=== PATIENT | male | born 1935 | race Caucasian/White ===

== ENCOUNTER → 2018-09-24 | Outpatient (CLI) | payer MEDICARE ==
[2018-09-24 19:33] LABS: Protein, Total 6.4 g/dL (6.2-8.2)
[2018-09-24 21:18] LABS: Hemoglobin A1C 5.7 % (4.0-6.0)
[2018-09-25 13:15] LABS: Albumin 3.89 g/dL (3.80-4.90); Gamma Globulin 0.88 g/dL (0.70-1.50)
== END | disposition home or self-care (01) ==
LOC: LABWHC1 12:27
PROVIDERS: ATTEND Psychiatry & Neurology Neurology
DX: G90.09 Other idiopathic peripheral autonomic neuropathy (principal); R26.89 Other abnormalities of gait and mobility; R42 Dizziness and giddiness
CPT/HCPCS: 36415; 82607; 82747; 83036; 84165; 85652; 86038; 86618

== ENCOUNTER 2021-05-26 09:25 | Day surgery (SDC) | payer MEDICARE ==
[2021-05-23 15:16] VITALS: BMI 28.2
[~2021-05-26 09:25] MED LIST: LACTATED RINGERS 1,000 ML IV SCH
[2021-05-26 09:55] VITALS: TEMP 97.4
[2021-05-26] MEDS ORDERED: LIDOCAINE 1% INJ 10MG/ML (20 ML MDV) ONE (10:37)
[2021-05-26] MEDS ORDERED: PROPOFOL 10 MG/ML 20 ML VIAL IV ONE (10:37)
--- NOTE | 2021-05-26 10:56 | P.GSHP ---
History of Present Illness H&P Date: 05/26/21 CHIEF COMPLAINT: GERD and colon screen HISTORY OF PRESENT ILLNESS: The patient is a 85-year-old male who presents with GI bleed and colon polyps. Upper and lower endoscopy were offered for further evaluation and management. PAST MEDICAL HISTORY: Please see list. PAST SURGICAL HISTORY: Please see list. MEDICATIONS: Please see list. ALLERGIES: Please see list. SOCIAL HISTORY: No illicit drug use FAMILY HISTORY: No reports of Crohn disease or ulcerative colitis. REVIEW OF ORGAN SYSTEMS: CONSTITUTIONAL: No reports of fevers or chills. PHYSICAL EXAM: VITAL SIGNS: Stable GENERAL: Well-developed pleasant in no acute distress. HEENT: No scleral icterus. Extraocular movements grossly intact. Moist buccal mucosa. NECK: Supple without lymphadenopathy. CHEST: Unlabored respirations. Equal bilateral excursions. CARDIOVASCULAR: Regular rate and rhythm. Distal 2+ pulses. ABDOMEN: Soft, nondistended. MUSCULOSKELETAL: No clubbing, cyanosis, or edema. ASSESSMENT: 1. GI bleed 2. Colon polyps PLAN: 1. Recommend proceeding with an upper and lower endoscopy Past Medical History Past Medical History: Atrial Fibrillation, Coronary Artery Disease (CAD), Hyperlipidemia, Hypertension, Myocardial Infarction ([place]), Prostate Disorder, S leep Apnea/CPAP/BIPAP, Thyroid Disorder Last Myocardial Infarction Date:: 1993 History of Any Multi-Drug Resistant Organisms: None Reported Past Surgical History: Coronary Bypass/CABG, Heart Catheterization With Stent, Joint Replacement, Pacemaker Additional Past Surgical History / Comment(s): retina repaired. mac. cataracts removed. right knee replaced Past Anesthesia/Blood Transfusion Reactions: No Reported Reaction Date of Last Stent Placement:: 2017 Type of Cardiac Device: Permanent Pacemaker Device Placement Date:: 2006 Past Psychological History: No Psychological Hx Reported Smoking Status: Never smoker Past Alcohol Use History: None Reported Past Drug Use History: None Reported Medications and Allergies Home Medications Medication Instructions Recorded Confirmed Type Apixaban [Eliquis] 5 mg PO BID-W/MEALS 05/23/21 05/23/21 History Chlorthalidone 25 mg PO DIRECTED 05/23/21 05/23/21 History Clopidogrel [Plavix] 75 mg PO AC-BRKFST 05/23/21 05/23/21 History Ferrous Sulfate [Feosol] 325 mg PO AC-LUNCH 05/23/21 05/23/21 History Finasteride [Proscar] 5 mg PO AC-LUNCH 05/23/21 05/23/21 History Latanoprost Ophth [Xalatan 0.005%] 1 drops BOTH EYES HS 05/23/21 05/23/21 History Levothyroxine Sodium [Synthroid] 75 mcg PO QAM 05/23/21 05/23/21 History Losartan [Cozaar] 50 mg PO AC-LUNCH 05/23/21 05/23/21 History Metoprolol Tartrate 25 mg PO BID-W/MEALS 05/23/21 05/23/21 History Montelukast [Singulair] 10 mg PO AC-BRKFST 05/23/21 05/23/21 History Multivitamins, Thera [Multivitamin 1 tab PO -KT 05/23/21 05/23/21 History (formulary)] Omeprazole Magnesium [PriLOSEC] 20 mg PO AC-BRKFST 05/23/21 05/23/21 History Simvastatin [Zocor] 40 mg PO HS 05/23/21 05/23/21 History Tamsulosin HCl [Flomax] 0.4 mg PO AC-SUPPER 05/23/21 05/23/21 History Ubidecarenone [Co Q-10] 100 mg PO BID-W/MEALS 05/23/21 05/23/21 History Allergies Allergy/AdvReac Type Severity Reaction Status Date / Time hydromorphone [From Dilaudid] AdvReac Nausea & Verified 05/26/21 09:47 Vomiting Surgical - Exam Vital Signs Temp Pulse Resp BP Pulse Ox 97.4 F L 83 16 173/92 96 05/26/21 09:51 05/26/21 09:51 05/26/21 09:51 05/26/21 09:51 05/26/21 09:51
--- NOTE | 2021-05-26 10:57 | P.PCN ---
Date of Procedure: 05/26/21 Description of Procedure: PREOPERATIVE DIAGNOSIS: GI bleed POSTOPERATIVE DIAGNOSIS: Gastritis. Gastroesophageal reflux disease. Diaphragmatic hiatal hernia OPERATION: Esophagogastroduodenoscopy SURGEON: Nanette Benoit MD ANESTHESIA: MAC. INDICATIONS: The patient is a 85-year-old male who presents with a history of GI bleed. Benefits and risks of the procedure were described. Informed consent was obtained. DESCRIPTION: The patient was brought into the endoscopy suite and laid in the left lateral decubitus position. An Olympus gastroscope was passed along the posterior oropharynx down to the distal esophagus where the squamocolumnar junction was encountered at 40 cm from the incisors. The stomach was entered and no bile reflux was found. Additional findings are listed below. The first through third portion of the duodenum was examined and unremarkable. Retroflexion of the scope confirmed Hill grade 3 lower esophageal valve. The squamocolumnar junction demonstrated LA grade B erosive esophagitis. The stomach was desufflated. The patient tolerated the procedure well. FINDINGS: Squamocolumnar junction 44 cm from the incisors. Diaphragmatic hiatus at 45 cm. Hiatal hernia, 1 cm Hill grade 3 lower esophageal valve. LA grade B erosive esophagitis. No active duodenitis. Chronic gastritis RECOMMENDATIONS: Upper endoscopy as needed.
[2021-05-26] MEDS ORDERED: LACTATED RINGERS 1,000 ML IV ONE (11:02)
--- NOTE | 2021-05-26 11:16 | P.PCN ---
Date of Procedure: 05/26/21 Description of Procedure: PREOPERATIVE DIAGNOSIS: History of colon polyps History of GI bleed POSTOPERATIVE DIAGNOSIS: History of colon polyps History of GI bleed Diverticulosis, scattered. OPERATION: Colonoscopy to the cecum SURGEON: Nanette Benoit MD. ANESTHESIA: MAC. INDICATIONS: The patient is a 85-year-old male who presents with past history of colon polyps and guaiac positive stools. Benefits and risks were described and informed consent was obtained. DESCRIPTION OF PROCEDURE: The patient had undergone Sutab prep. The patient had been brought into the operating room and laid in the left lateral decubitus position. After adequate intravenous sedation, the rectum was examined with 2% lidocaine jelly. No external hemorrhoids were encountered. The rectal tone was mildly loose. No lesions were palpated in the rectal vault. An Olympus colonoscope was advanced until the cecum was clearly viewed. The prep was excellent. Sigmoid diverticulosis was encountered. No colonic polyps were found. No evidence of focal colitis was found. Retroflexion of the scope demonstrated grade 1 internal hemorrhoids without active bleeding or inflammation. The colon was desufflated. The patient had tolerated the procedure well. Withdrawal time was over 6 minutes. FINDINGS: Aronchick preparation quality scale 1 (1-5) Internal hemorrhoids, grade 1 No external prolapsed hemorrhoids. No arteriovenous malformations. No adenomatous polyps. No focal colitis. Sigmoid diverticulosis RECOMMENDATIONS: Lower endoscopy as needed Increase fiber 30 grams daily Plan - Discharge Summary Discharge Rx Participant: No New Discharge Prescriptions: Continue Finasteride [Proscar] 5 mg PO AC-LUNCH Latanoprost Ophth [Xalatan 0.005%] 1 drops BOTH EYES HS Ferrous Sulfate [Iron (65 MG Elemental)] 325 mg PO AC-LUNCH Metoprolol Tartrate 25 mg PO BID-W/MEALS Apixaban [Eliquis] 5 mg PO BID-W/MEALS Losartan [Cozaar] 50 mg PO AC-LUNCH Montelukast [Singulair] 10 mg PO AC-BRKFST Chlorthalidone 25 mg PO DIRECTED Tamsulosin HCl [Flomax] 0.4 mg PO AC-SUPPER Ubidecarenone [Co Q-10] 100 mg PO BID-W/MEALS Clopidogrel [Plavix] 75 mg PO AC-BRKFST Levothyroxine Sodium [Synthroid] 75 mcg PO QAM Omeprazole Magnesium [PriLOSEC] 20 mg PO AC-BRKFST Simvastatin [Zocor] 40 mg PO HS Multivitamins, Thera [Multivitamin (formulary)] 1 tab PO AC-BRKFST Discharge Medication List Apixaban [Eliquis] 5 mg PO BID-W/MEALS 05/23/21 [History] Chlorthalidone 25 mg PO DIRECTED 05/23/21 [History] Clopidogrel [Plavix] 75 mg PO AC-BRKFST 05/23/21 [History] Ferrous Sulfate [Iron (65 MG Elemental)] 325 mg PO AC-LUNCH 05/23/21 [History] Finasteride [Proscar] 5 mg PO AC-LUNCH 05/23/21 [History] Latanoprost Ophth [Xalatan 0.005%] 1 drops BOTH EYES HS 05/23/21 [History] Levothyroxine Sodium [Synthroid] 75 mcg PO QAM 05/23/21 [History] Losartan [Cozaar] 50 mg PO AC-LUNCH 05/23/21 [History] Metoprolol Tartrate 25 mg PO BID-W/MEALS 05/23/21 [History] Montelukast [Singulair] 10 mg PO AC-BRKFST 05/23/21 [History] Multivitamins, Thera [Multivitamin (formulary)] 1 tab PO AC-KFST 05/23/21 [History] Omeprazole Magnesium [PriLOSEC] 20 mg PO AC-BRKFST 05/23/21 [History] Simvastatin [Zocor] 40 mg PO HS 05/23/21 [History] Tamsulosin HCl [Flomax] 0.4 mg PO AC-SUPPER 05/23/21 [History] Ubidecarenone [Co Q-10] 100 mg PO BID-W/MEALS 05/23/21 [History] Follow up Appointment(s)/Referral(s): Nanette Benoit MD [STAFF PHYSICIAN] - 06/02/21 Patient Instructions/Handouts: Colonoscopy (DC), *Surgery [facility] - (Anesthesia) Endoscopy Discharge Instructions, Diverticulosis Diet (GEN), Diverticulosis (GEN) Activity/Diet/Wound Care/Special Instructions: May resume Eliquis today. Colonoscopy as needed. Discharge Disposition: HOME SELF-CARE
[2021-05-26 11:18] VITALS: PULSE 61
[2021-05-26 11:29] VITALS: BP 144/81; RESP 16
== END 2021-05-26 11:57 | disposition home or self-care (01) ==
LOC: ORWHC2ENDO 09:25
PROVIDERS: ATTEND Surgery Plastic and Reconstructive Surgery
DX: K29.70 Gastritis, unspecified, without bleeding (principal); K21.9 Gastro-esophageal reflux disease without esophagitis; K44.9 Diaphragmatic hernia without obstruction or gangrene; K57.90 Diverticulosis of intestine, part unspecified, without perforation or abscess without bleeding; I25.2 Old myocardial infarction; I48.91 Unspecified atrial fibrillation; E78.5 Hyperlipidemia, unspecified; I10 Essential (primary) hypertension; I25.10 Atherosclerotic heart disease of native coronary artery without angina pectoris; Z95.1 Presence of aortocoronary bypass graft; Z79.01 Long term (current) use of anticoagulants; Z79.02 Long term (current) use of antithrombotics/antiplatelets; Z88.5 Allergy status to narcotic agent; Z95.0 Presence of cardiac pacemaker; Z79.890 Hormone replacement therapy
CPT/HCPCS: 45378; 43235; J2001; J2704

== ENCOUNTER 2023-08-08 10:17 | Day surgery (SDC) | payer MEDICARE ==
[2023-08-07 09:37] VITALS: BMI 24.4
[2023-08-08 11:24] VITALS: RESP 16; TEMP 97.4
[2023-08-08] MEDS: LACTATED RINGERS 1,000 ML IV SCH ×2 (11:24→11:57)
[2023-08-08] MEDS ORDERED: PROPOFOL 10 MG/ML 20 ML VIAL IV ONE (11:58)
[2023-08-08] MEDS ORDERED: LIDOCAINE 1% INJ 10MG/ML (20 ML MDV) ONE (11:58)
--- NOTE | 2023-08-08 12:26 | P.PCN ---
Date of Procedure: 08/08/23 Procedure(s) Performed: Brief history: Patient is a pleasant 87-year-old white male scheduled for an elective upper endoscopy as well as colonoscopy as a part of evaluation of Iron deficiency anemia. Has history of A. fib and was on anticoagulants with eliquis . This was stopped 2 weeks ago after having Watchman procedure performed a month ago. Procedure performed: Esophagogastroduodenoscopy biopsy Colonoscopy with snare polypectomy Preoperative diagnosis: Iron deficiency anemia Anesthesia: MAC Procedure: After informed consent was obtained from the patient was brought into the endoscopy unit and IV sedation was administered by anesthesia under continuous monitoring. Initially upper endoscopy was done. The Olympus GF 160 video endoscope was inserted inserted into the mouth and esophagus intubated without any difficulty and was gradually advanced into the stomach and duodenum and carefully examined. The bulb and second part of the duodenum appeared normal. The scope was then withdrawn into the stomach adequately insufflated with air and upon careful examination the antrum and body, cardia and fundus appeared normal. Multiple small gastric polyps noted in the body the stomach one of which had some old blood. Biopsies of the gastric polyps done. The scope was then withdrawn into the esophagus. The GE junction was located at 40 cm to the incisors. It appeared regular with no erythema erosions or ulcerations. Rest of the esophagus appeared normal. Patient tolerated the procedure well. At this time the patient continued to remain sedation. Initial digital rectal examination was normal. Olympus CF 160 video colonoscope was then inserted into the rectum and gradually advanced to the cecum without any difficulty. Careful examination was performed as the scope was gradually being withdrawn. The prep was excellent. The cecum, appeared normal. In the ascending colon there were 3 polyps measuring between 3-4 mm in size all of which were removed by cold snare polypectomy. In the hepatic flexure there was a 5 limited polyp removed by snare polypectomy. In the descending colon there was another 5 mm polyp removed by snare polypectomy. Moderate left sided diverticulosis seen. Rest of the ascending colon, transverse colon, descending colon, sigmoid colon and rectum appeared normal. Retroflexion was performed in the rectum and no lesions were noted. Patient tolerated the procedure well. Impression: 1. Upper endoscopy revealed multiple gastric polyps but no evidence of esophagitis, peptic ulcer disease or angiectasia 2. Colonoscopy revealed: a) 3 polyps in the ascending colon measuring between 3-4 mm in size status post polypectomy b) 5 mm hepatic flexure polyp status post polypectomy c) 5 mm descending colon polyp status post polypectomy 4) moderate sigmoid diverticulosis Recommendations: Findings of this examination were discussed with the patient as well as his family. He was advised to follow with the biopsy results. Resume iron supplements daily. Monitor CBC once a month.
[2023-08-08 12:48] VITALS: BP 113/62; PULSE 65
== END 2023-08-08 13:06 | disposition home or self-care (01) ==
LOC: ORWHC2ENDO 10:17
PROVIDERS: ATTEND Internal Medicine Gastroenterology
DX: K31.7 Polyp of stomach and duodenum (principal); K57.30 Diverticulosis of large intestine without perforation or abscess without bleeding; D12.2 Benign neoplasm of ascending colon; D12.3 Benign neoplasm of transverse colon; D12.4 Benign neoplasm of descending colon; D50.9 Iron deficiency anemia, unspecified; I25.10 Atherosclerotic heart disease of native coronary artery without angina pectoris; I48.91 Unspecified atrial fibrillation; E07.9 Disorder of thyroid, unspecified; K21.9 Gastro-esophageal reflux disease without esophagitis; Z79.01 Long term (current) use of anticoagulants; Z79.1 Long term (current) use of non-steroidal anti-inflammatories (NSAID); Z79.891 Long term (current) use of opiate analgesic; Z79.890 Hormone replacement therapy; Z88.8 Allergy status to other drugs, medicaments and biological substances; Z98.890 Other specified postprocedural states
CPT/HCPCS: 45385; 43239; J2001; J2704; 88305

== ENCOUNTER 2023-08-20 19:22 | Emergency (ER) | payer MEDICARE ==
[2023-08-20] MEDS ORDERED: KETOROLAC 15 MG/ML 1 ML VIAL IVP STA (20:41)
--- NOTE | 2023-08-20 20:41 | ED ---
Abdominal Pain HPI - General Chief Complaint: Abdominal Pain Stated Complaint: Hernia Time Seen by Provider: 08/20/23 19:47 Source: patient Mode of arrival: ambulatory Limitations: no limitations - History of Present Illness Initial Comments: A 87-year-old male presenting to the ED with a chief complaint of hernia. Patient notes that he was recently diagnosed inguinal hernia. Reports that he is usually not able to reduce this. States that he has surgery scheduled on the of this month however approximately 2 hours ago reports acute onset of wo rsening pain. Therefore, called Dr. Tong's office and was advised to present to the ED for further evaluation. Denies chest pain or shortness breath. No abdominal pain. No fever or chills. Since onset, patient reports pain has "eased up" a little. - Related Data Home Medications Medication Instructions Recorded Confirmed RX: Ferrous Sulfate [Iron (65 MG 325 mg PO DAILY 05/23/21 08/20/23 Elemental)] RX: Finasteride [Proscar] 5 mg PO DAILY 05/23/21 08/20/23 RX: Latanoprost Ophth [Xalatan 1 drop BOTH EYES HS 05/23/21 08/20/23 0.005%] RX: Levothyroxine Sodium 75 mcg PO DAILY 05/23/21 08/20/23 [Synthroid] RX: Multivitamins, Thera 1 tab PO DAILY 05/23/21 08/20/23 [Multivitamin (formulary)] RX: Omeprazole Magnesium [PriLOSEC] 20 mg PO AC-BRKFST 05/23/21 08/20/23 RX: Simvastatin [Zocor] 40 mg PO HS 05/23/21 08/20/23 RX: Tamsulosin HCl [Flomax] 0.4 mg PO DAILY 05/23/21 08/20/23 RX: Ubidecarenone [Co Q-10] 100 mg PO BID-W/MEALS 05/23/21 08/20/23 Acetaminophen Tab [Tylenol Tab] 500 mg PO Q6H PRN 08/07/23 08/20/23 Ascorbic Acid [Vitamin C] 500 mg PO DAILY 08/07/23 08/20/23 Aspirin [Adult Low Dose Aspirin EC] 81 mg PO DAILY 08/07/23 08/20/23 Furosemide [Lasix] 20 mg PO DAILY 08/07/23 08/20/23 Metoprolol Succinate (ER) [Toprol 50 mg PO DAILY 08/07/23 08/20/23 Xl] RX: Famotidine 20 mg PO DAILY 08/07/23 08/20/23 Spironolactone [Aldactone] 25 mg PO DAILY 08/07/23 08/20/23 Calcium Citrate/Vitamin D3 1 tab PO W/SUPPER 08/20/23 08/20/23 [Citracal + D Maximum Caplet] Allergies Allergy/AdvReac Type Severity Reaction Status Date / Time hydromorphone [From Dilaudid] AdvReac Nausea & Verified 08/20/23 23:00 Vomiting Review of Systems ROS Statement: Those systems with pertinent positive or pertinent negative responses have been documented in the HPI. ROS Other: All systems not noted in ROS Statement are negative. Past Medical History Past Medical History: Atrial Fibrillation, Coronary Artery Disease (CAD), Hyperlipidemia, Hypertension, Myocardial Infarction ([place]), Prostate Disorder, Sleep Apnea/CPAP/BIPAP, Thyroid Disorder Additional Past Medical History / Comment(s): RIGHT INGUINAL HERNIA Last Myocardial Infarction Date:: 1993 History of Any Multi-Drug Resistant Organisms: None Reported Past Surgical History: Coronary Bypass/CABG, Heart Catheterization With Stent, Joint Replacement, Pacemaker Additional Past Surgical History / Comment(s): retina repaired. mac. cataracts removed. right knee replaced. Watchman procedure Past Anesthesia/Blood Transfusion Reactions: No Reported Reaction Date of Last Stent Placement:: 2017 Type of Cardiac Device: Permanent Pacemaker Device Placement Date:: 2006 Past Psychological History: No Psychological Hx Reported Smoking Status: Never smoker Past Alcohol Use History: None Reported Past Drug Use History: None Reported General Exam Limitations: no limitations Neck exam: Present: normal inspection Respiratory exam: Present: normal lung sounds bilaterally Cardiovascular Exam: Present: regular rate GI/Abdominal exam: Present: soft exam: Present: other (Large non-reducible inguinal hernia) Neurological exam: Present: alert, oriented X3 Course Vital Signs 08/20/23 19:30 Temperature 98.5 F Pulse Rate 69 Respiratory 20 Rate Blood Pressure 125/74 O2 Sat by Pulse 97 Oximetry Medical Decision Making - Medical Decision Making Was pt. sent in by a medical professional or institution (, PA, ECHOCARDIOGRAPHY TECH, urgent care, hospital, or senior living...) When possible be specific @ -No Did you speak to anyone other than the patient for history (EMS, parent, family, police, friend...)? What history was obtained from this source @ -No Did you review nursing and triage notes (agree or disagree)? Why? @ -I reviewed and agree with nursing and triage notes Were old charts reviewed (outside hosp., previous admission, EMS record, old EKG, old radiological studies, urgent care reports/EKG's, senior living records)? Report findings @ -No old charts were reviewed Differential Diagnosis (chest pain, altered mental status, abdominal pain women, abdominal pain men, vaginal bleeding, weakness, fever, dyspnea, syncope, headache, dizziness, GI bleed, back pain, seizure, CVA, palpatations, mental health, musculoskeletal)? @ -Differential Abdominal Pain Men: Appendicitis, cholecystitis, diverticulosis, ischemic bowel, pancreatitis, hepatitis, UTI, gastroenteritis, AAA, incarcerated hernia, bowel obstruction, constipation, inflammatory bowel, hepatitis, peptic ulcer disease, splenic infarction, perforated viscus, testicular torsion, this is not meant to be an all-inclusive list EKG interpreted by me (3pts min.). @ -None X-rays interpreted by me (1pt min.). @ -None done CT interpreted by me (1pt min.). @ -CT of the pelvis with contrast interpreted by me shows Right inguinal hernia with omental fat and fluid tracking into the hernia sac however no evidence of bowel extending into the hernia sac. U/S interpreted by me (1pt. min.). @ -None done What testing was considered but not performed or refused? (CT, X-rays, U/S, labs)? Why? @ -None What meds were considered but not given or refused? Why? @ -None Did you discuss the management of the patient with other professionals (professionals i.e. , PA, ECHOCARDIOGRAPHY TECH, lab, RT, psych nurse, social sciences lecturer, office support clerk, teacher, public information officer, special education case manager)? Give summary @ -No Was smoking cessation discussed for >3mins.? @ -No Was critical care preformed (if so, how long)? @ -No Were there social determinants of health that impacted care today? How? (Homelessness, low income, unemployed, alcoholism, drug addiction, transportation, low edu. Level, literacy, decrease access to med. care, custodial, rehab)? @ -No Was there de-escalation of care discussed even if they declined (Discuss DNR or withdrawal of care, Hospice)? DNR status @ -No What co-morbidities impacted this encounter? (DM, HTN, Smoking, COPD, CAD, Cancer, CVA, ARF, Chemo, Hep., AIDS, mental health diagnosis, sleep apnea, morbid obesity)? @ -None Was patient admitted / discharged? Hospital course, mention meds given and route, prescriptions, significant lab abnormalities, going to OR and other per tinent info. @ -Discharge A 87-year-old male presents to the ED with episode of acute worsening pain of inguinal hernia. At this time, pain well controlled after Toradol in the ED. Patient admits to not taking pain medications. Laboratory studies largely unremarkable, including lactic acid. CT of the abdomen did show inguinal hernia however no evidence of bowel in the hernia. Patient discharged home in stable condition with instructions to follow-up with Dr. Dotson as scheduled. Discussed return precautions with patient who verbalizes agreement. Undiagnosed new problem with uncertain prognosis? @ -No Drug Therapy requiring intensive monitoring for toxicity (Heparin, Nitro, Insulin, Cardizem)? @ -No Were any procedures done? @ -No Diagnosis/symptom? @ -Inguinal hernia Acute, or Chronic, or Acute on Chronic? @ -Acute Uncomplicated (without systemic symptoms) or Complicated (systemic symptoms)? @ -Uncomplicated Side effects of treatment? @ -No Exacerbation, Progression, or Severe Exacerbation? @ -No Poses a threat to life or bodily function? How? (Chest pain, [place], [place], pneumonia, PE, COPD, DKA, ARF, appy, cholecystitis, CVA, Diverticulitis, Homicidal, Suicidal, threat to staff... and all critical care pts) @ -No - Lab Data Result diagrams: 08/20/23 20:37 08/20/23 20:37 Lab Results 08/20/23 08/20/23 08/20/23 Range/Units 20:37 20:37 20:37 WBC 8.2 (3.8-10.6) k/uL RBC 4.00 L (4.30-5.90) m/uL Hgb 12.6 L (13.0-17.5) gm/dL Hct 38.3 L (39.0-53.0) % MCV 95.5 (80.0-100.0) fL MCH 31.4 (25.0-35.0) pg MCHC 32.9 (31.0-37.0) g/dL RDW 14.8 (11.5-15.5) % Plt Count 93 L (150-450) k/uL MPV 10.2 Neutrophils % 79 % Lymphocytes % 11 % Monocytes % 6 % Eosinophils % 2 % Basophils % 0 % Neutrophils # 6.5 (1.3-7.7) k/uL Lymphocytes # 0.9 L (1.0-4.8) k/uL Monocytes # 0.5 (0-1.0) k/uL Eosinophils # 0.2 (0-0.7) k/uL Basophils # 0.0 (0-0.2) k/uL Manual Slide Review Performed Large Platelets Present Polychromasia Present Sodium 137 (137-145) mmol/L Potassium 4.3 (3.5-5.1) mmol/L Chloride 102 (98-107) mmol/L Carbon Dioxide 24 (22-30) mmol/L Anion Gap 11 mmol/L BUN 18 (9-20) mg/dL Creatinine 0.76 (0.66-1.25) mg/dL Est GFR (CKD-EPI)AfAm >90 (>60 ml/min/1.73 sqM) Est GFR (CKD-EPI)NonAf 83 (>60 ml/min/1.73 sqM) Glucose 93 (74-99) mg/dL Plasma Lactic Acid Hunter 1.1 (0.7-2.0) mmol/L Calcium 9.5 (8.4-10.2) mg/dL Total Bilirubin 1.4 H (0.2-1.3) mg/dL AST 41 (17-59) U/L ALT 21 (4-49) U/L Alkaline Phosphatase 186 H (38-126) U/L Total Protein 7.0 (6.3-8.2) g/dL Albumin 4.1 (3.5-5.0) g/dL Disposition Clinical Impression: Inguinal hernia Disposition: HOME SELF-CARE Condition: Good Additional Instructions: Please return to the Emergency Department if symptoms worsen or any other concerns. Take Motrin and Tylenol as needed for pain. Follow-up with Dr. Dotson as scheduled. Is patient prescribed a controlled substance at d/c from ED?: No Referrals: Brad Escobar MD [Primary Care Provider] - 1-2 days Time of Disposition: 23:55
[2023-08-20 21:28] LABS: Basophils % (A) 0 %; Eosinophils # (A) 0.2 k/uL (0-0.7); Eosinophils % (A) 2 %; HCT 38.3 % (39.0-53.0); HGB 12.6 gm/dL (13.0-17.5); Lymphocytes # (A) 0.9 k/uL (1.0-4.8); Lymphocytes % (A) 11 %; MCH 31.4 pg (25.0-35.0); MCHC 32.9 g/dL (31.0-37.0); MCV 95.5 fL (80.0-100.0); Mean Platelet Volume 10.2; Monocytes # (A) 0.5 k/uL (0-1.0); Monocytes % (A) 6 %; Neutrophils # (A) 6.5 k/uL (1.3-7.7); Neutrophils % (A) 79 %; RDW 14.8 % (11.5-15.5); WBC 8.2 k/uL (3.8-10.6)
[2023-08-20 21:37] LABS: ALT 21 U/L (4-49); AST 41 U/L (17-59); African American GFR (CKD) >90 (>60 ml/min/1.73 sqM); Albumin 4.1 g/dL (3.5-5.0); Alkaline Phosphatase 186 U/L (38-126); Anion Gap 11 mmol/L; Blood Urea Nitrogen 18 mg/dL (9-20); Calcium 9.5 mg/dL (8.4-10.2); Carbon Dioxide 24 mmol/L (22-30); Chloride 102 mmol/L (98-107); Glucose 93 mg/dL (74-99); Non-African American GFR(CKD) 83 (>60 ml/min/1.73 sqM); Potassium 4.3 mmol/L (3.5-5.1); Sodium 137 mmol/L (137-145); Total Bilirubin 1.4 mg/dL (0.2-1.3)
[2023-08-20 21:53] LABS: Large Platelets Present; Platelet Count 93 k/uL (150-450)
[2023-08-20 21:54] LABS: Polychromasia Present
--- NOTE | 2023-08-20 23:42 | CT ---
EXAM: CT Pelvis With Intravenous Contrast CLINICAL HISTORY: ITS.REASON CT Reason: hx inguinal hernia. r/o strangulation. TECHNIQUE: Axial computed tomography images of the pelvis with intravenous contrast. CTDI is 21.2 mGy and DLP is 1003 mGy-cm. This CT exam was performed using one or more of the following dose reduction techniques: automated exposure control, adjustment of the mA and/or kV according to patient size, and/or use of iterative reconstruction technique. COMPARISON: No relevant prior studies available. FINDINGS: Kidneys and ureters: Simple cyst arising off the lower pole of the right kidney. No further workup is required. Bowel: Unremarkable. No obstruction. No mucosal thickening. Appendix: No findings to suggest acute appendicitis. Intraperitoneal space: Mild ascites. No free air. Bladder: Moderate bladder distention. Reproductive: Unremarkable as visualized. Bones/joints: No acute fracture. No dislocation. Soft tissues: Right inguinal hernia with omental fat and fluid tracking into the hernia sac. Vasculature: Unremarkable. No lower abdominal aortic aneurysm. Lymph nodes: Unremarkable. No enlarged lymph nodes. IMPRESSION: 1. Right inguinal hernia with omental fat and fluid tracking into the hernia sac. No evidence of bowel extending to the hernia sac. 2. Moderate bladder distention.
[2023-08-21 00:48] VITALS: BP 129/75; PULSE 71; RESP 18; TEMP 98
== END 2023-08-21 00:28 | disposition home or self-care (01) ==
LOC: EC 19:22
DX: K40.90 Unilateral inguinal hernia, without obstruction or gangrene, not specified as recurrent (principal); I48.91 Unspecified atrial fibrillation; I25.2 Old myocardial infarction; E78.5 Hyperlipidemia, unspecified; I10 Essential (primary) hypertension; I25.10 Atherosclerotic heart disease of native coronary artery without angina pectoris; E07.9 Disorder of thyroid, unspecified; Z88.5 Allergy status to narcotic agent; Z79.890 Hormone replacement therapy; Z79.899 Other long term (current) drug therapy
CPT/HCPCS: 80053; 83605; 85025; 72193; 99284; 96374; J1885; Q9967; 36415

== ENCOUNTER 2023-08-29 08:13 | Inpatient (IN) | payer MEDICARE ==
[2023-08-24 15:38] VITALS: BMI 24.8
[~2023-08-29 08:13] MED LIST changes: +ACETAMINOPHEN TAB 500 MG TAB PO PRN; +HEPARIN SODIUM,PORCINE/PF 5,000 UNIT/0.5 ML SYRINGE SQ PRN; -LACTATED RINGERS 1,000 ML IV SCH
[2023-08-29] MEDS ORDERED: ONDANSETRON 4 MG/2 ML VIAL ONE (09:09)
[2023-08-29] MEDS: LACTATED RINGERS 1,000 ML IV SCH (09:10)
[2023-08-29] MEDS ORDERED: DEXAMETHASONE SOD PHOSPHATE 4 MG/ML 1 ML VIAL IVP ONE (09:15)
[2023-08-29] MEDS ORDERED: ONDANSETRON 4 MG/2 ML VIAL IVP ONE (09:15)
[2023-08-29 09:23] LABS: Basophils % (A) 0 %; Eosinophils # (A) 0.2 k/uL (0-0.7); Eosinophils % (A) 3 %; HCT 39.3 % (39.0-53.0); HGB 12.9 gm/dL (13.0-17.5); Lymphocytes # (A) 1.3 k/uL (1.0-4.8); Lymphocytes % (A) 15 %; MCH 31.8 pg (25.0-35.0); MCHC 32.7 g/dL (31.0-37.0); MCV 97.2 fL (80.0-100.0); Mean Platelet Volume 10.5; Monocytes # (A) 0.8 k/uL (0-1.0); Monocytes % (A) 8 %; Neutrophils # (A) 6.5 k/uL (1.3-7.7); Neutrophils % (A) 72 %; RBC 4.05 m/uL (4.30-5.90); WBC 9.1 k/uL (3.8-10.6)
[2023-08-29] MEDS ORDERED: MIDAZOLAM 2 MG/2 ML VIAL IVP ONE (09:28)
[2023-08-29] MEDS ORDERED: fentaNYL (PF) 50 MCG/ML 2 ML AMP IVP ONE (09:28)
[2023-08-29 09:39] LABS: Platelet Count 92 k/uL (150-450)
[2023-08-29] MEDS ORDERED: SODIUM CHLORIDE 0.9% (PF) 10 ML VIAL ONE (09:49)
[2023-08-29] MEDS ORDERED: fentaNYL (PF) 50 MCG/ML 2 ML AMP ONE (09:49)
[2023-08-29] MEDS ORDERED: GLYCOPYRROLATE 0.2 MG/ML 2 ML VIAL ONE (09:49)
[2023-08-29] MEDS ORDERED: ROPIVACAINE 5 MG/ML 30 ML VIAL ONE (09:49)
[2023-08-29] MEDS ORDERED: KETOROLAC 15 MG/ML 1 ML VIAL ONE (09:49)
[2023-08-29] MEDS ORDERED: LIDOCAINE 1% INJ 10MG/ML (20 ML MDV) ONE (09:49)
[2023-08-29] MEDS ORDERED: PROPOFOL 10 MG/ML 20 ML VIAL IV ONE (09:49)
[2023-08-29] MEDS ORDERED: NEOSTIGMINE 1 MG/ML 10 ML VIAL ONE (09:49)
[2023-08-29] MEDS ORDERED: SUCCINYLCHOLINE CHLORIDE 200 MG/10 ML VIAL IV ONE (09:49)
[2023-08-29] MEDS ORDERED: ROCURONIUM 10 MG/ML (5 ML VIAL) IV ONE (09:49)
[2023-08-29] MEDS ORDERED: DEXAMETHASONE SOD PHOSPHATE 4 MG/ML 1 ML VIAL ONE (09:49)
[2023-08-29] MEDS ORDERED: BUPIVACAINE (PF) 0.25% 30 ML VIAL SQ ONE ×2 (09:50→10:16)
--- NOTE | 2023-08-29 09:50 | P.ANPRN ---
Procedure Note - Anesthesia - Nerve Block Performed Bilateral Erector Spinae Single Time Out Performed: Yes Date of Procedure: 08/29/23 Procedure Start Time: : Procedure Stop Time: : Location of Patient: PreOp Indication: Acute Post-Operative Pain, Requested by Surgeon Sedation Type: Sedate with meaningful contact maintained Preparation: Sterile Prep Position: Prone Needle Types: Pajunk Needle Gauge: 21 Ultrasound used to visualize needle placement: Yes Ultrasound used to observe medication spread: Yes Injectate: 0.5% Ropivacaine (see comment for volume) (15 ml + 15 ml NS + 4 mg dexamethasone per side) Blood Aspirated: No Pain Paresthesia on Injection Noted: No Resistance on Injection: Normal Image Stored and Saved: Yes Events: Uneventful and Well Tolerated
--- NOTE | 2023-08-29 10:02 | P.OP ---
Date of Procedure: 08/29/23 Preoperative Diagnosis: Incarcerated umbilical hernia Postoperative Diagnosis: Incarcerated umbilical hernia Procedure(s) Performed: Laparoscopic robotic-assisted repair of incarcerated umbilical hernia Partial omentectomy Transversus abdominis plane block Anesthesia: MARY Surgeon: Brandon Tong Pathology: other (Omentum) Condition: stable Disposition: PACU Description of Procedure: The patient was placed on the operating table in the supine position. He received general anesthesia. His abdomen was prepped and draped usual fashion. Using a 5 mm optical trocar under direct visualization the peritoneal cavity was entered in the left upper quadrant. The abdomen was then insufflated. The laparoscope was placed back into the perineal cavity. Next a 8 mm robotic trocar was placed in the left lower quadrant and a 12 mm robotic trocar was placed in the left lateral position. The original 5 mm trocar was exchanged for a 8 mm robotic trocar. A four-quadrant transversus abdominis plane block was then performed with 1% local Xylocaine. The patient's placed in the left side up position. And the patient was docked the robot. The umbilical hernia was visualized. Using hook cautery the peritoneum over the umbilical hernia was excised. Incarcerated omentum was dissected free and sent to pathology. The fascial opening was repaired using 0V LOC suture. Next a piece of 11 cm round ventral light ST mesh was placed into the. Cavity and secured with 2 OV lock suture. The patient was undocked the robot. The needles were retrieved. The fascia of the 12 mm trocar site was closed with 0 Ethibond suture. Skin was closed interrupted 3-0 Monocryl suture. Dermabond dressings was applied. Patient tolerated the procedure well and was sent to recovery room stable condition.
--- NOTE | 2023-08-29 11:01 | P.OP ---
Date of Procedure: 08/29/23 Preoperative Diagnosis: Right inguinal hernia Postoperative Diagnosis: Right inguinal hernia Procedure(s) Performed: Laparoscopic robotic system repair of right inguinal hernia Transversus abdominis plane block Anesthesia: MARY Surgeon: Brandon Tong Estimated Blood Loss (ml): 5 Pathology: none sent Condition: stable Disposition: PACU Description of Procedure: The patient's placed on the operating table in the supine position. The patient received general anesthesia. The patient's abdomen was prepped and draped in usual sterile fashion. The skin was anesthetized 1% local Xylocaine at the incision sites. Using an 11 blade a skin incision was made at the umbilicus. The fascia was grasped with a [place] and then the peritoneal cavity was entered with the Veress needle. Position of the Veress needle was confirmed with a positive drop test. After adequate insufflation a 5 mm trocar was placed into the peritoneal cavity. The Laparoscope was placed the peritoneal cavity. And a robotic 8 mm trocar was placed in the right lateral position and then another 8 mm robotic trochars placed in the left lateral position. The original 5 mm trocar was exchanged for a 12 mm trocar. A transversus abdominis plane block was performed in 4 quadrants using 1% local Xylocaine. The patient was placed in reverse Trendelenburg and then the patient was docked to the robot. Next the peritoneum over top of the hernia was incised and then using blunt and sharp dissection and electrocautery the hernia sac was dissected free from the floor of the inguinal canal. The hernia sac was completely reduced into the peritoneal cavity. And then using the Pro hydraulic press tender mesh the hernia was repaired. The peritoneum was then sutured with 20V lock suture. The patient was then undocked the robot. The needle was withdrawn from the peritoneal cavity. The umbilical trocar site was closed with 0 Ethibond suture. The skin was closed interrupted 3-0 Monocryl suture. Dermabond dressing was applied. Patient was sent to recovery in stable condition.
[2023-08-29] MEDS ORDERED: LACTATED RINGERS 1,000 ML IV ONE (11:34)
[2023-08-29] MEDS ORDERED: FUROSEMIDE 10 MG/ML 4 ML VIAL IVP ONE (14:34)
[2023-08-29] MEDS ORDERED: HYDROcodone/APAP 5-325MG 1 EACH TAB PO PRN (15:14)
[2023-08-29] MEDS ORDERED: NALOXONE 0.4 MG/ML 1 ML VIAL IV PRN (15:14)
[2023-08-29] MEDS ORDERED: ONDANSETRON 4 MG/2 ML VIAL IVP PRN (15:14)
[2023-08-29] MEDS ORDERED: HYDROmorphone 0.5 MG/0.5 ML SYRINGE IVP PRN (15:14)
[2023-08-29] MEDS ORDERED: ACETAMINOPHEN TAB 325 MG TAB PO PRN (15:14)
[2023-08-29] MEDS ORDERED: traMADol 50 MG TAB PO PRN (15:14)
[2023-08-29] MEDS ORDERED: ACETAMINOPHEN TAB 500 MG TAB PO PRN (15:26)
[2023-08-29] MEDS ORDERED: D5-0.45% NACL WITH KCL 20MEQ/L 1,000 ML IV SCH (16:30)
[2023-08-29] MEDS ORDERED: CALCIUM CARB-VIT D 500 MG-5 MCG TAB PO SCH (17:30)
[2023-08-29] MEDS ORDERED: NON FORMULARY DRUG (Ubidecarenone [Co Q-10] 100 MG Capsule) PO SCH (17:30)
[2023-08-29] MEDS: TAMSULOSIN 0.4 MG CAP.ER.24H PO SCH (20:09)
[2023-08-29] MEDS: FERROUS SULFATE 325 MG TAB PO SCH (20:13)
[2023-08-29] MEDS: KETOROLAC 15 MG/ML 1 ML VIAL IVP SCH ×2 (20:16→23:53)
[2023-08-29] MEDS ORDERED: ATORVASTATIN 20 MG TAB PO SCH (21:00)
[2023-08-29] MEDS ORDERED: FAMOTIDINE 20 MG TAB PO SCH (21:00)
[2023-08-29] MEDS ORDERED: LATANOPROST 0.005% OPHTH DROPS 2.5 ML BTL BOTH EYES SCH (21:00)
--- NOTE | 2023-08-29 21:41 | P.CONS ---
History of Present Illness - Reason for Consult Consult date: 08/29/23 Medical management Requesting physician: Brandon Tong - Chief Complaint Right inguinal hernia repair - History of Present Illness This is a pleasant 87-year-old patient who follows with Dr. Brad Escobar. 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 Patient is undergoing right inguinal hernia repair by Dr. Tong. Mild localized pain. No nausea vomiting. Laying in bed. No chest pain or shortness of breath. Review of systems: GEN.: Tired EYES: None HEENT: None NECK: None RESPIRATORY: None CARDIOVASCULAR: None GASTROINTESTINAL: None GENITOURINARY: None MUSCULOSKELETAL: Some joint pains LYMPHATICS: None HEMATOLOGICAL: None PSYCHIATRY: None NEUROLOGICAL: None Social history: Nonsmoking. No alcohol. . Physical examination: VITAL SIGNS: 97.4, 60, 16, 1 36 x 65, 97% room air GENERAL: BMI 25.1, declining bit of a comfortable. EYES: Pupils equal. Conjunctiva normal. HEENT: External appearance of nose and ears normal, oral cavity grossly normal. NECK: JVD not raised; masses not palpable. HEART: First and second heart sounds are normal; no edema. LUNGS: Respiratory rate normal; clear to auscultation. ABDOMEN: Soft, nontender, liver spleen not palpable, no masses palpable. Dressing over the incision site PSYCH: Alert and oriented x3; mood and affect normal. MUSCULOSKELETAL:No Clubbing/cyanosis;muscles-grossly intact. OA NEUROLOGICAL: Cranial nerves grossly intact; no facial asymmetry, power and sensation grossly intact. LYMPHATICS: No lymph nodes palpable in the axilla and neck INVESTIGATIONS, reviewed in the clinical context: White count 9.1 hemoglobin 12.9 platelets 92 Assessment and plan: -Right inguinal hernia repair by Dr. Tong Clear liquid diet -Pacemaker -History of atrial fibrillation Toprol-XL 50 mg a day -CAD with a prior history of stent: He bypass -Hyperlipidemia Zocor 40 mg daily at bedtime -Essential hypertension Toprol-XL 50 mg a day -Obstructive sleep apnea uses CPAP -Hypothyroid Synthroid 75 g a day -BPH Proscar 5 mg daily Flomax 0.4 mg a day -Primary osteoarthritis Pain medications as needed Patient's currently on liquid diet. Earlier had urinary retention after had straight catheterization. Hopefully do better with activity. Home medications be resumed. Discussed with patient. Thank you Dr. 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 mac. cataracts removed,right knee replaced,Watchman procedure,CABG-1989,2016-2 vessels w/ mitral valve repair Past Anesthesia/Blood Transfusion Reactions: No Reported Reaction Additional Past Anesthesia/Blood Transfusion Reaction / Comm: no known hx blood transfusion Date of Last Stent Placement:: 2017 Type of Cardiac Device: Permanent Pacemaker Device Placement Date:: 2006,2010,2021 Past Psychological History: No Psychological Hx Reported Smoking Status: Never smoker Past Alcohol Use History: None Reported Past Drug Use History: None Reported - Past Family History Mother Family Medical History: No Reported History Sister(s) Family Medical History: Cancer Additional Family Medical History / Comment(s): breast CA Medications and Allergies Home Medications Medication Instructions Recorded Confirmed Type Ferrous Sulfate [Iron (65 MG 325 mg PO BID 05/23/21 08/24/23 History Elemental)] Finasteride [Proscar] 5 mg PO QAM 05/23/21 08/24/23 History Latanoprost Ophth [Xalatan 0.005%] 1 drop BOTH EYES HS 05/23/21 08/24/23 History Levothyroxine Sodium [Synthroid] 75 mcg PO QAM 05/23/21 08/24/23 History Multivitamins, Thera [Multivitamin 1 tab PO DAILY 05/23/21 08/24/23 History (formulary)] Simvastatin [Zocor] 40 mg PO HS 05/23/21 08/24/23 History Tamsulosin HCl [Flomax] 0.4 mg PO QAM 05/23/21 08/24/23 History Ubidecarenone [Co Q-10] 100 mg PO BID-W/MEALS 05/23/21 08/24/23 History Acetaminophen Tab [Tylenol Tab] 500 mg PO Q6H PRN 08/07/23 08/24/23 History Ascorbic Acid [Vitamin C] 500 mg PO DAILY 08/07/23 08/24/23 History Aspirin [Adult Low Dose Aspirin EC] 81 mg PO DAILY 08/07/23 08/24/23 History Famotidine 20 mg PO HS 08/07/23 08/24/23 History Furosemide [Lasix] 20 mg PO 1200 08/07/23 08/24/23 History Metoprolol Succinate (ER) [Toprol 50 mg PO 1200 08/07/23 08/24/23 History Xl] Spironolactone [Aldactone] 25 mg PO QAM 08/07/23 08/24/23 History Calcium Citrate/Vitamin D3 1 tab PO W/SUPPER 08/20/23 08/24/23 History [Citracal + D Maximum Caplet] Ibuprofen [Advil] 200 mg PO Q8HR PRN 08/24/23 08/24/23 History Magnesium 250 mg PO DAILY 08/24/23 08/24/23 History Acetaminophen Tab [Tylenol] 650 mg PO Q6H #30 tab 08/29/23 Rx Acetaminophen Tab [Tylenol] 650 mg PO Q6H #30 tab 08/29/23 Rx Docusate [Colace] 100 mg PO BID #20 capsule 08/29/23 Rx Docusate [Colace] 100 mg PO BID #20 capsule 08/29/23 Rx Ibuprofen [Motrin] 600 mg PO Q6HR PRN #40 tab 08/29/23 Rx Ibuprofen [Motrin] 600 mg PO Q6HR PRN #40 tab 08/29/23 Rx oxyCODONE HCL [OxyIR] 5 mg PO Q6H PRN 3 Days #10 tab 08/29/23 Rx oxyCODONE HCL [OxyIR] 5 mg PO Q6H PRN 3 Days #10 tab 08/29/23 Rx Allergies Allergy/AdvReac Type Severity Reaction Status Date / Time hydromorphone [From Dilaudid] AdvReac Nausea & Verified 08/29/23 08:45 Vomiting Physical Exam Vitals: Vital Signs Temp Pulse Resp BP Pulse Ox 08/29/23 16:00 97.4 F L 60 16 136/65 97 08/29/23 14:58 60 138/81 100 08/29/23 14:38 64 18 135/74 98 08/29/23 13:40 60 122/76 100 08/29/23 13:10 60 14 124/75 100 08/29/23 12:40 60 14 120/70 99 08/29/23 12:25 57 L 14 114/66 93 L 08/29/23 12:10 108/67 08/29/23 12:01 61 14 96 08/29/23 11:47 64 14 128/72 96 08/29/23 11:39 59 L 20 134/68 94 L 08/29/23 11:24 59 L 18 135/65 92 L 08/29/23 11:09 59 L 20 135/65 94 L 08/29/23 10:54 98.1 F 64 14 147/75 98 08/29/23 09:40 67 16 128/65 98 08/29/23 08:49 97.5 F L 84 16 134/82 97 Intake and Output 08/29/23 08/29/23 08/29/23 06:59 14:59 22:59 Intake Total 1250 Output Total 10 Balance 1240 Intake: IV 1250 Output: Estimated Blood Loss 10 Other: Weight 84 kg 84 kg Results CBC & Chem 7: 08/29/23 09:08 Labs: Abnormal Lab Results - Last 24 Hours (Table) 08/29/23 Range/Units 09:08 RBC 4.05 L (4.30-5.90) m/uL Hgb 12.9 L (13.0-17.5) gm/dL Plt Count 92 L (150-450) k/uL
[2023-08-29 22:52] VITALS: RESP 18
[2023-08-30] MEDS: KETOROLAC 15 MG/ML 1 ML VIAL IVP SCH ×2 (05:36→13:13)
[2023-08-30] MEDS ORDERED: LEVOTHYROXINE 75 MCG TAB PO SCH (06:30)
[2023-08-30] MEDS: LACTATED RINGERS 1,000 ML IV SCH (06:54)
[2023-08-30] MEDS: FERROUS SULFATE 325 MG TAB PO SCH (08:13)
[2023-08-30] MEDS: TAMSULOSIN 0.4 MG CAP.ER.24H PO SCH (08:13)
[2023-08-30] MEDS ORDERED: MAGNESIUM OXIDE 400 MG TAB PO SCH (09:00)
[2023-08-30] MEDS ORDERED: ENOXAPARIN 40 MG/0.4 ML SYRINGE SQ SCH (09:00)
[2023-08-30] MEDS ORDERED: ASCORBIC ACID 500 MG TAB PO SCH (09:00)
[2023-08-30] MEDS ORDERED: FINASTERIDE 5 MG TAB PO SCH (09:00)
[2023-08-30] MEDS ORDERED: SPIRONOLACTONE 25 MG TAB PO SCH (09:00)
[2023-08-30] MEDS ORDERED: MULTIVITAMINS, THERA 1 EACH TAB PO SCH (09:00)
[2023-08-30 09:51] LABS: Basophils % (A) 0 %; Eosinophils % (A) 0 %; HCT 40.6 % (39.0-53.0); HGB 13.2 gm/dL (13.0-17.5); Hypochromasia Slight; Lymphocytes % (A) 8 %; MCH 31.9 pg (25.0-35.0); MCHC 32.4 g/dL (31.0-37.0); MCV 98.4 fL (80.0-100.0); Mean Platelet Volume 10.7; Monocytes # (A) 0.6 k/uL (0-1.0); Monocytes % (A) 5 %; Neutrophils # (A) 11.5 k/uL (1.3-7.7); Neutrophils % (A) 87 %; RBC 4.13 m/uL (4.30-5.90); RDW 14.6 % (11.5-15.5); WBC 13.3 k/uL (3.8-10.6)
[2023-08-30 10:02] LABS: Platelet Count 89 k/uL (150-450)
--- NOTE | 2023-08-30 11:48 | P.DS ---
Providers Date of admission: 08/29/23 15:13 Expected date of discharge: 08/30/23 Attending physician: Brandon Tong Consults: 08/29/23 17:39 Consult Physician Routine Consulting Provider: Juvenal Vargas Consult Reason/Comments: medical management Do you want consulting provider notified?: Already Contacted Primary care physician: Brad Escobar Hospital Course: Discharge diagnosis 1. Right inguinal hernia status post robotic-assisted laparoscopic right inguinal hernia repair with mesh 2. Urinary retention Hospital course This is a 87-year-old male with a right inguinal hernia. He is status post Robotic-assisted laparoscopic right inguinal hernia repair with mesh. Patient did develop urinary retention and will be discharged home with a Rodríguez catheter. He developed fluid overload after surgery did require 1 dose of IV Lasix. Patient reports his pain is controlled. He is tolerating diet. He has been up and ambulating. He is having flatus. He is afebrile. He is stable for discharge. Patient to follow-up with his urologist at discharge. Please refer to chart for any further details. Physician Non Destructive Evaluation Technician note has been reviewed by physician. Signing provider agrees with the documented findings, assessment, and plan of care. Patient Condition at Discharge: Stable Plan - Discharge Summary Discharge Rx Participant: No New Discharge Prescriptions: New Docusate [Colace] 100 mg PO BID #20 capsule Ibuprofen [Motrin] 600 mg PO Q6HR PRN #40 tab PRN Reason: Pain oxyCODONE HCL [OxyIR] 5 mg PO Q6H PRN 3 Days #10 tab PRN Reason: Pain Acetaminophen Tab [Tylenol] 650 mg PO Q6H #30 tab Docusate [Colace] 100 mg PO BID #20 capsule Ibuprofen [Motrin] 600 mg PO Q6HR PRN #40 tab PRN Reason: Pain oxyCODONE HCL [OxyIR] 5 mg PO Q6H PRN 3 Days #10 tab PRN Reason: Pain Acetaminophen Tab [Tylenol] 650 mg PO Q6H #30 tab Continue Finasteride [Proscar] 5 mg PO QAM Latanoprost Ophth [Xalatan 0.005%] 1 drop BOTH EYES HS Ferrous Sulfate [Iron (65 MG Elemental)] 325 mg PO BID Aspirin [Adult Low Dose Aspirin EC] 81 mg PO DAILY Ascorbic Acid [Vitamin C] 500 mg PO DAILY Famotidine 20 mg PO HS Spironolactone [Aldactone] 25 mg PO QAM Calcium Citrate/Vitamin D3 [Citracal + D Maximum Caplet] 1 tab PO W/SUPPER Tamsulosin HCl [Flomax] 0.4 mg PO QAM Ubidecarenone [Co Q-10] 100 mg PO BID-W/MEALS Levothyroxine Sodium [Synthroid] 75 mcg PO QAM Simvastatin [Zocor] 40 mg PO HS Multivitamins, Thera [Multivitamin (formulary)] 1 tab PO DAILY Furosemide [Lasix] 20 mg PO 1200 Metoprolol Succinate (ER) [Toprol XL] 50 mg PO 1200 Magnesium 250 mg PO DAILY Discontinued Acetaminophen Tab [Tylenol Tab] 500 mg PO Q6H PRN PRN Reason: Pain Ibuprofen [Advil] 200 mg PO Q8HR PRN PRN Reason: Pain Discharge Medication List Ferrous Sulfate [Iron (65 MG Elemental)] 325 mg PO BID 05/23/21 [History] Finasteride [Proscar] 5 mg PO QAM 05/23/21 [History] Latanoprost Ophth [Xalatan 0.005%] 1 drop BOTH EYES HS 05/23/21 [History] Levothyroxine Sodium [Synthroid] 75 mcg PO QAM 05/23/21 [History] Multivitamins, Thera [Multivitamin (formulary)] 1 tab PO DAILY 05/23/21 [History] Simvastatin [Zocor] 40 mg PO HS 05/23/21 [History] Tamsulosin HCl [Flomax] 0.4 mg PO QAM 05/23/21 [History] Ubidecarenone [Co Q-10] 100 mg PO BID-W/MEALS 05/23/21 [History] Ascorbic Acid [Vitamin C] 500 mg PO DAILY 08/07/23 [History] Aspirin [Adult Low Dose Aspirin EC] 81 mg PO DAILY 08/07/23 [History] Famotidine 20 mg PO HS 08/07/23 [History] Furosemide [Lasix] 20 mg PO 1200 08/07/23 [History] Metoprolol Succinate (ER) [Toprol XL] 50 mg PO 1200 08/07/23 [History] Spironolactone [Aldactone] 25 mg PO QAM 08/07/23 [History] Calcium Citrate/Vitamin D3 [Citracal + D Maximum Caplet] 1 tab PO W/SUPPER 08/20/23 [History] Magnesium 250 mg PO DAILY 08/24/23 [History] Acetaminophen Tab [Tylenol] 650 mg PO Q6H #30 tab 08/29/23 [Rx] Acetaminophen Tab [Tylenol] 650 mg PO Q6H #30 tab 08/29/23 [Rx] Docusate [Colace] 100 mg PO BID #20 capsule 08/29/23 [Rx] Docusate [Colace] 100 mg PO BID #20 capsule 08/29/23 [Rx] Ibuprofen [Motrin] 600 mg PO Q6HR PRN #40 tab 08/29/23 [Rx] Ibuprofen [Motrin] 600 mg PO Q6HR PRN #40 tab 08/29/23 [Rx] oxyCODONE HCL [OxyIR] 5 mg PO Q6H PRN 3 Days #10 tab 08/29/23 [Rx] oxyCODONE HCL [OxyIR] 5 mg PO Q6H PRN 3 Days #10 tab 08/29/23 [Rx] Follow up Appointment(s)/Referral(s): Brad Escobar MD [Primary Care Provider] - 1 Week Brandon Tong MD [STAFF PHYSICIAN] - 09/11/23 1:50 pm Patient Instructions/Handouts: *Surgery [facility] - (Anesthesia) Discharge Instru ctions Outpatient Surgery, Laparoscopic Herniorrhaphy (DC) Activity/Diet/Wound Care/Special Instructions: dc with rodríguez- f/u with own urologist/dr kelly Discharge Disposition: HOME SELF-CARE
[2023-08-30] MEDS ORDERED: FUROSEMIDE 20 MG TAB PO SCH (12:00)
[2023-08-30] MEDS ORDERED: METOPROLOL SUCCINATE (ER) 50 MG TAB.ER.24H PO SCH (12:00)
[2023-08-30 12:01] LABS: African American GFR (CKD) >90 (>60 ml/min/1.73 sqM); Anion Gap 12 mmol/L; Blood Urea Nitrogen 26 mg/dL (9-20); Calcium 9.6 mg/dL (8.4-10.2); Carbon Dioxide 24 mmol/L (22-30); Chloride 102 mmol/L (98-107); Glucose 112 mg/dL (74-99); Non-African American GFR(CKD) 80 (>60 ml/min/1.73 sqM); Potassium 4.7 mmol/L (3.5-5.1); Sodium 138 mmol/L (137-145)
[2023-08-30 13:32] VITALS: BP 134/71; PULSE 70; TEMP 97.8
--- NOTE | 2023-08-31 19:49 | P.PN ---
Progress Note - Text Progress Note Date: 08/30/23 - Chief Complaint Right inguinal hernia repair - History of Present Illness This is a pleasant 87-year-old patient who follows with Dr. Brad Escobar. 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 Patient is undergoing right inguinal hernia repair by Dr. Tong. Mild localized pain. No nausea vomiting. Laying in bed. No chest pain or shortness of breath. August 30: Do much better. Pain well controlled. Did tolerate her diet. Questions answered. Social history: Nonsmoking. No alcohol. . Physical examination: VITAL SIGNS: 97.8, 70, 18, 1:30/71, 99% room air GENERAL: Resting in bed, comfortable EYES: Pupils equal. Conjunctiva normal. HEENT: External appearance of nose and ears normal, oral cavity grossly normal. NECK: JVD not raised; masses not palpable. HEART: First and second heart sounds are normal; no edema. LUNGS: Respiratory rate normal; clear to auscultation. ABDOMEN: Soft, nontender, liver spleen not palpable, no masses palpable. Minimal tenderness over the incision site PSYCH: Alert and oriented x3; mood and affect normal. MUSCULOSKELETAL:No Clubbing/cyanosis;muscles-grossly intact. OA INVESTIGATIONS, reviewed in the clinical context: August 30: White count 13.3 hemoglobin 13.2 progression 4.7 crit 0.83 White count 9.1 hemoglobin 12.9 platelets 92 Assessment and plan: -Right inguinal hernia repair by Dr. Tong Tolerating diet -Pacemaker -History of atrial fibrillation Toprol-XL 50 mg a day -CAD with a prior history of stent: He bypass -Hyperlipidemia Zocor 40 mg daily at bedtime -Essential hypertension Toprol-XL 50 mg a day -Obstructive sleep apnea uses CPAP -Hypothyroid Synthroid 75 g a day -BPH Proscar 5 mg daily Flomax 0.4 mg a day -Primary osteoarthritis Pain medications as needed Tolerating diet. Has been out of bed. Questions answered Thank you Dr. Tong
== END 2023-08-30 16:50 | disposition home or self-care (01) | DRG 352 ==
LOC: OR 08:13 → 3SCARD 10:47 → OR 15:10 → 3SCARD 15:13
PROVIDERS: ADMIT Surgery; ATTEND Surgery
PROC: 0YU54JZ Supplement Right Inguinal Region with Synthetic Substitute, Percutaneous Endoscopic Approach (ICD-10-PCS; principal; 2023-08-29 10:00)
DX: K40.90 Unilateral inguinal hernia, without obstruction or gangrene, not specified as recurrent (principal); E03.9 Hypothyroidism, unspecified; I48.91 Unspecified atrial fibrillation; E78.5 Hyperlipidemia, unspecified; I10 Essential (primary) hypertension; I25.10 Atherosclerotic heart disease of native coronary artery without angina pectoris; G47.33 Obstructive sleep apnea (adult) (pediatric); M19.91 Primary osteoarthritis, unspecified site; E87.70 Fluid overload, unspecified; N40.1 Benign prostatic hyperplasia with lower urinary tract symptoms; R33.8 Other retention of urine; I25.2 Old myocardial infarction; Z79.82 Long term (current) use of aspirin; Z79.890 Hormone replacement therapy; Z79.01 Long term (current) use of anticoagulants; Z79.899 Other long term (current) drug therapy; Z95.5 Presence of coronary angioplasty implant and graft; Z95.1 Presence of aortocoronary bypass graft; Z92.3 Personal history of irradiation; Z85.21 Personal history of malignant neoplasm of larynx; Z95.0 Presence of cardiac pacemaker; Z95.818 Presence of other cardiac implants and grafts; Z87.442 Personal history of urinary calculi; Z88.5 Allergy status to narcotic agent
CPT/HCPCS: 64999; 80048; 83735; 85025

== ENCOUNTER 2023-10-18 17:52 | Observation (INO) | payer MEDICARE ==
[2023-10-18] MEDS ORDERED: FUROSEMIDE 10 MG/ML 4 ML VIAL IV STA (18:35)
[2023-10-18] MEDS ORDERED: ACETAMINOPHEN TAB 325 MG TAB PO PRN (18:45)
[2023-10-18] MEDS ORDERED: NALOXONE 0.4 MG/ML 1 ML VIAL IV PRN (18:45)
--- NOTE | 2023-10-18 18:45 | ED ---
General Adult HPI - General Chief complaint: Recheck/Abnormal Lab/Rx Stated complaint: Blood in Urine Time Seen by Provider: 10/18/23 18:19 Source: patient, RN notes reviewed, old records reviewed Mode of arrival: EMS Limitations: no limitations - History of Present Illness Initial comments: 87-year-old male sent as transfer from [facility] for evaluation of dyspnea and troponin elevation. Patient was noted to have a troponin of 0.076 and an elevated BNP. He does have history of CHF and reports mild exertional dyspnea as well as bilateral lower extremity swelling. He denies central chest pain. He states he typically follows with cardiology out of [facility] but this facility was closed to transfers and he was sent to [facility] for cardiology evaluation. - Related Data Home Medications Medication Instructions Recorded Confirmed Ferrous Sulfate [Iron (65 MG 325 mg PO BID 05/23/21 08/24/23 Elemental)] Finasteride [Proscar] 5 mg PO QAM 05/23/21 08/24/23 Latanoprost Ophth [Xalatan 0.005%] 1 drop BOTH EYES HS 05/23/21 08/24/23 Levothyroxine Sodium [Synthroid] 75 mcg PO QAM 05/23/21 08/24/23 Multivitamins, Thera [Multivitamin 1 tab PO DAILY 05/23/21 08/24/23 (formulary)] Simvastatin [Zocor] 40 mg PO HS 05/23/21 08/24/23 Tamsulosin HCl [Flomax] 0.4 mg PO QAM 05/23/21 08/24/23 Ubidecarenone [Co Q-10] 100 mg PO BID-W/MEALS 05/23/21 08/24/23 Ascorbic Acid [Vitamin C] 500 mg PO DAILY 08/07/23 08/24/23 Aspirin [Adult Low Dose Aspirin EC] 81 mg PO DAILY 08/07/23 08/24/23 Famotidine 20 mg PO HS 08/07/23 08/24/23 Furosemide [Lasix] 20 mg PO 1200 08/07/23 08/24/23 Metoprolol Succinate (ER) [Toprol 50 mg PO 1200 08/07/23 08/24/23 XL] Spironolactone [Aldactone] 25 mg PO QAM 08/07/23 08/24/23 Calcium Citrate/Vitamin D3 1 tab PO W/SUPPER 08/20/23 08/24/23 [Citracal + D Maximum Caplet] Magnesium 250 mg PO DAILY 08/24/23 08/24/23 Previous Rx's Medication Instructions Recorded Acetaminophen Tab [Tylenol] 650 mg PO Q6H #30 tab 08/29/23 Acetaminophen Tab [Tylenol] 650 mg PO Q6H #30 tab 08/29/23 Docusate [Colace] 100 mg PO BID #20 capsule 08/29/23 Docusate [Colace] 100 mg PO BID #20 capsule 08/29/23 Ibuprofen [Motrin] 600 mg PO Q6HR PRN #40 tab 08/29/23 Ibuprofen [Motrin] 600 mg PO Q6HR PRN #40 tab 08/29/23 oxyCODONE HCL [OxyIR] 5 mg PO Q6H PRN 3 Days #10 tab 08/29/23 oxyCODONE HCL [OxyIR] 5 mg PO Q6H PRN 3 Days #10 tab 08/29/23 Allergies Allergy/AdvReac Type Severity Reaction Status Date / Time hydromorphone [From Dilaudid] AdvReac Nausea & Verified 10/18/23 18:05 Vomiting Review of Systems ROS Statement: Those systems with pertinent positive or pertinent negative responses have been documented in the HPI. ROS Other: All systems not noted in ROS Statement are negative. 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 mac. cataracts removed,right knee replaced,Watchman procedure,CABG-1989,2016-2 vessels w/ mitral valve repair Past Anesthesia/Blood Transfusion Reactions: No Reported Reaction Additional Past Anesthesia/Blood Transfusion Reaction / Comment(s): no known hx blood transfusion Date of Last Stent Placement:: 2017 Type of Cardiac Device: Permanent Pacemaker Device Placement Date:: ,2021 Past Psychological History: No Psychological Hx Reported Smoking Status: Never smoker Past Alcohol Use History: None Reported Past Drug Use History: None Reported - Past Family History Mother Family Medical History: No Reported History Sister(s) Family Medical History: Cancer Additional Family Medical History / Comment(s): breast CA General Exam Limitations: no limitations General appearance: alert, in no apparent distress Head exam: Present: atraumatic, normocephalic Eye exam: Present: normal appearance, PERRL ENT exam: Present: normal exam Neck exam: Present: normal inspection. Absent: tenderness, meningismus Respiratory exam: Present: decreased breath sounds (Right lower). Absent: respiratory distress, wheezes Cardiovascular Exam: Present: regular rate, normal rhythm GI/Abdominal exam: Present: soft. Absent: distended, tenderness Extremities exam: Present: pedal edema Neurological exam: Present: alert, oriented X3, CN II-XII intact. Absent: motor sensory deficit Psychiatric exam: Present: normal affect, normal mood Skin exam: Present: warm, dry, intact. Absent: cyanosis, diaphoretic Course Vital Signs 10/18/23 18:02 Temperature 98.8 F Pulse Rate 69 Respiratory 18 Rate Blood Pressure 126/68 O2 Sat by Pulse 98 Oximetry Medical Decision Making - Medical Decision Making Was pt. sent in by a medical professional or institution (, PA, CURB BUILDER, urgent care, hospital, or custodial...) When possible be specific @ -[Patient transferred from [facility] Did you speak to anyone other than the patient for history (EMS, parent, family, police, friend...)? What history was obtained from this source @ -No Did you review nursing and triage notes (agree or disagree)? Why? @ -I reviewed and agree with nursing and triage notes Were old charts reviewed (outside hosp., previous admission, EMS record, old EKG, old radiological studies, urgent care reports/EKG's, custodial records)? Report findings @ -No old charts were reviewed Differential Diagnosis (chest pain, altered mental status, abdominal pain women, abdominal pain men, vaginal bleeding, weakness, fever, dyspnea, syncope, headache, dizziness, GI bleed, back pain, seizure, CVA, palpatations, mental health, musculoskeletal)? @ Differential Dyspnea: Coronary syndrome, arrhythmia, tamponade, asthma, COPD, pulmonary embolism, pneumonia, pneumothorax, pulmonary effusion, anaphylaxis, diabetic ketoacidosis, flailed chest, pulmonary contusion, diaphragmatic rupture, anemia, neuromuscular, this is not meant to be an all-inclusive list. EKG interpreted by me (3pts min.). @Paced rhythm rate is 62, QRS duration 203, QTC 497 @ -Chest x-ray showing cardiomegaly with left-sided pleural effusion CT interpreted by me (1pt min.). @ -None done U/S interpreted by me (1pt. min.). @ -None done What testing was considered but not performed or refused? (CT, X-rays, U/S, labs)? Why? @ -None What meds were considered but not given or refused? Why? @ -None Did you discuss the management of the patient with other professionals (professionals i.e. , PA, CURB BUILDER, lab, RT, psych nurse, social service assistant, divorce lawyer, teacher, forward air controller/air officer, upper caser)? Give summary @ Dr. Vargas Was smoking cessation discussed for >3mins.? @ -No Was critical care preformed (if so, how long)? @ -No Were there social determinants of health that impacted care today? How? (Homel essness, low income, unemployed, alcoholism, drug addiction, transportation, low edu. Level, literacy, decrease access to med. care, penitentiary, rehab)? @ -No Was there de-escalation of care discussed even if they declined (Discuss DNR or withdrawal of care, Hospice)? DNR status @ -No What co-morbidities impacted this encounter? (DM, HTN, Smoking, COPD, CAD, Cancer, CVA, ARF, Chemo, Hep., AIDS, mental health diagnosis, sleep apnea, morbid obesity)? @ -[CAD, CHF Was patient admitted / discharged? Hospital course, mention meds given and route, prescriptions, significant lab abnormalities, going to OR and other pertinent info. @ -87-year-old male transferred from outside hospital with elevated troponin and mild dyspnea. Patient had elevated BNP and a troponin of 0.076. This level will be repeated and trended. He will be given IV diuresis in the emergency department. All repeat labs including CBC, CMP troponin and BNP are currently pending. Patient admitted to Dr. Vargas who is aware with cardiology on consult. Undiagnosed new problem with uncertain prognosis? @ -No Drug Therapy requiring intensive monitoring for toxicity (Heparin, Nitro, Insulin, Cardizem)? @ -No Were any procedures done? @ -No Diagnosis/symptom? @ -CHF, Trop elevated Acute, or Chronic, or Acute on Chronic? @ -[acute Uncomplicated (without systemic symptoms) or Complicated (systemic symptoms)? @ -default Side effects of treatment? @ -No Exacerbation, Progression, or Severe Exacerbation? @ -No Poses a threat to life or bodily function? How? (Chest pain, [place], [place], pneumonia, PE, COPD, DKA, ARF, appy, cholecystitis, CVA, Diverticulitis, Homicidal, Suicidal, threat to staff... and all critical care pts) @ yes, CHF, CAD - Lab Data Result diagrams: 10/18/23 18:41 10/18/23 18:41 Lab Results 10/18/23 10/18/23 10/18/23 Range/Units 18:41 18:41 18:41 WBC 9.6 (3.8-10.6) k/uL RBC 4.03 L (4.30-5.90) m/uL Hgb 12.9 L (13.0-17.5) gm/dL Hct 39.4 (39.0-53.0) % MCV 97.8 (80.0-100.0) fL MCH 32.1 (25.0-35.0) pg MCHC 32.9 (31.0-37.0) g/dL RDW 14.9 (11.5-15.5) % Plt Count 123 L (150-450) k/uL MPV 9.4 Neutrophils % 78 % Lymphocytes % 13 % Monocytes % 6 % Eosinophils % 2 % Basophils % 0 % Neutrophils # 7.4 (1.3-7.7) k/uL Lymphocytes # 1.2 (1.0-4.8) k/uL Monocytes # 0.6 (0-1.0) k/uL Eosinophils # 0.1 (0-0.7) k/uL Basophils # 0.0 (0-0.2) k/uL PT 12.8 H (10.0-12.5) sec INR 1.2 H (<1.2) APTT 26.6 (22.0-30.0) sec Sodium 134 L (137-145) mmol/L Potassium 4.0 (3.5-5.1) mmol/L Chloride 97 L (98-107) mmol/L Carbon Dioxide 28 (22-30) mmol/L Anion Gap 9 mmol/L BUN 17 (9-20) mg/dL Creatinine 0.74 (0.66-1.25) mg/dL Est GFR (CKD-EPI)AfAm >90 (>60 ml/min/1.73 sqM) Est GFR (CKD-EPI)NonAf 84 (>60 ml/min/1.73 sqM) Glucose 87 (74-99) mg/dL Calcium 9.1 (8.4-10.2) mg/dL Total Bilirubin 2.2 H (0.2-1.3) mg/dL AST 51 (17-59) U/L ALT 24 (4-49) U/L Alkaline Phosphatase 124 (38-126) U/L NT-Pro-B Natriuret Pep 2590 pg/mL Total Protein 6.7 (6.3-8.2) g/dL Albumin 3.8 (3.5-5.0) g/dL Disposition Clinical Impression: Troponin level elevated, CHF (congestive heart failure) Disposition: ADMITTED IP TO THIS HOSP Condition: Stable Is patient prescribed a controlled substance at d/c from ED?: No Time of Disposition: 18:45
[2023-10-18 19:13] LABS: Basophils % (A) 0 %; Eosinophils # (A) 0.1 k/uL (0-0.7); Eosinophils % (A) 2 %; HCT 39.4 % (39.0-53.0); HGB 12.9 gm/dL (13.0-17.5); Lymphocytes # (A) 1.2 k/uL (1.0-4.8); Lymphocytes % (A) 13 %; MCH 32.1 pg (25.0-35.0); MCHC 32.9 g/dL (31.0-37.0); MCV 97.8 fL (80.0-100.0); Mean Platelet Volume 9.4; Monocytes # (A) 0.6 k/uL (0-1.0); Monocytes % (A) 6 %; Neutrophils # (A) 7.4 k/uL (1.3-7.7); Neutrophils % (A) 78 %; Platelet Count 123 k/uL (150-450); RBC 4.03 m/uL (4.30-5.90); RDW 14.9 % (11.5-15.5); WBC 9.6 k/uL (3.8-10.6)
[2023-10-18 19:25] LABS: INR 1.2 (<1.2); Partial Thromboplastin Time 26.6 sec (22.0-30.0); Prothrombin Time 12.8 sec (10.0-12.5)
[2023-10-18 19:37] LABS: ALT 24 U/L (4-49); AST 51 U/L (17-59); African American GFR (CKD) >90 (>60 ml/min/1.73 sqM); Albumin 3.8 g/dL (3.5-5.0); Alkaline Phosphatase 124 U/L (38-126); Anion Gap 9 mmol/L; Blood Urea Nitrogen 17 mg/dL (9-20); Calcium 9.1 mg/dL (8.4-10.2); Carbon Dioxide 28 mmol/L (22-30); Chloride 97 mmol/L (98-107); Glucose 87 mg/dL (74-99); Non-African American GFR(CKD) 84 (>60 ml/min/1.73 sqM); Sodium 134 mmol/L (137-145); Total Bilirubin 2.2 mg/dL (0.2-1.3); Total Protein 6.7 g/dL (6.3-8.2)
[2023-10-18 19:45] LABS: NT-Pro-B-Type Natriuretic Pept 2590 pg/mL
--- NOTE | 2023-10-18 19:51 | XR ---
EXAMINATION TYPE: XR chest 2V DATE OF EXAM: 10/18/2023 7:30 PM CLINICAL INDICATION:Male, 87 years old with history of sean; PHH COMPARISON: None TECHNIQUE: XR chest 2V Frontal and lateral views of the chest. FINDINGS: Lungs/Pleura: Blunting of left costophrenic angle. There is no evidence of right pleural effusion, fo kerline consolidation, or pneumothorax. Pulmonary vascularity: Pulmonary vascular congestion. Heart/mediastinum: Cardiomediastinal silhouette is enlarged and stable. Atherosclerotic calcificatio ns are seen in the aorta. Three lead cardiac conduction device overlying the left hemithorax with marcelle d tips projecting over the right ventricle, right atrium and coronary sinus. Musculoskeletal: No acute osseous pathology. Midline sternotomy wires are noted. Other findings: None IMPRESSION: Cardiomegaly and mild pulmonary vascular congestion. Correlate with BNP for congestive heart failure. Small left pleural effusion.
[2023-10-18 20:12] LABS: Appearance,Urine Cloudy (Clear); Bacteria,Urine Occasional /hpf; Bilirubin,Urine Negative (Negative); Blood,Urine Large (Negative); Color,Urine Yellow; Glucose,Urine (UA) Negative (Negative); Ketones,Urine Negative (Negative); Leukocyte Esterase,Urine Large (Negative); Nitrite,Urine Negative (Negative); PH, Urine 7.5 (5.0-8.0); Protein,Urine 1+ (Negative); RBC,Urine >182 /hpf (0-5); Specific Gravity,Urine 1.009 (1.001-1.035); Urobilinogen,Urine <2.0 mg/dL (<2.0); WBC,Urine 108 /hpf (0-5)
[2023-10-18] MEDS ORDERED: PSYLLIUM HUSK 100% 6 GM PACKET PO PRN (20:47)
[2023-10-18] MEDS ORDERED: ONDANSETRON 4 MG/2 ML VIAL IVP PRN (20:48)
[2023-10-18] MEDS ORDERED: MELATONIN 3 MG TABLET PO PRN (20:48)
[2023-10-18] MEDS ORDERED: LACTULOSE 20 GM/30 ML CUP PO PRN (20:48)
[2023-10-18] MEDS ORDERED: ALPRAZolam 0.25 MG TAB PO PRN (20:48)
[2023-10-18] MEDS ORDERED: CALCIUM CARBONATE 500 MG CHEWABLE PO PRN (20:48)
--- NOTE | 2023-10-18 20:51 | P.HPIM ---
History of Present Illness H&P Date: 10/18/23 Chief Complaint: Hematuria This is a pleasant 87-year-old patient who follows with Dr. Brad Escobar. 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 In August 2023 patient underwent right inguinal hernia repair. Patient had to have a Santos catheter placed at that time. Patient's had intermittent red unit/ bleeding. Today he became significantly more. Denies any pelvic discomfort or pain. No fever no chills. Decided to come in. Patient's is readmitted to [facility]. Appetite is fair. Review of systems: GEN.: None EYES: None HEENT: None NECK: None RESPIRATORY: None CARDIOVASCULAR: None GASTROINTESTINAL: None GENITOURINARY: As above MUSCULOSKELETAL: Some joint pains LYMPHATICS: None HEMATOLOGICAL: None PSYCHIATRY: None NEUROLOGICAL: None Social history: Nonsmoking. No alcohol. . Physical examination: VITAL SIGNS: At 8.8, 69, 18, 126/68, 98% room air GENERAL: Likely 7.1, sitting up bed awake comfortable EYES: Pupils equal. Conjunctiva normal. HEENT: External appearance of nose and ears normal, oral cavity grossly normal. NECK: JVD not raised; masses not palpable. HEART: First and second heart sounds are normal; edema present LUNGS: Respiratory rate normal; clear to auscultation. ABDOMEN: Soft, nontender, liver spleen not palpable, no masses palpable. : Dark urine PSYCH: Alert and oriented x3; mood and affect normal. MUSCULOSKELETAL:No Clubbing/cyanosis;muscles-grossly intact. OA NEUROLOGICAL: Cranial nerves grossly intact; no facial asymmetry, power and sensation grossly intact. LYMPHATICS: No lymph nodes palpable in the axilla and neck INVESTIGATIONS, reviewed in the clinical context: 10/18/2023: White count 9.6 hemoglobin 12.9 platelets 123 sodium 134 potassium 4 creatinine 0.74 EKG tracing personally reviewed by me-ventricular pacemaker 9 Chest x-ray film personally reviewed by me-cardiomegaly. Venous prominence Previous labs: 08/30/2023 hemoglobin 13.2 Assessment and plan: -Acute congestive heart failure exacerbation IV Lasix. 2-D echo -Intermittent hematuria present for about 4 weeks. Progressively getting more. Consults urology -Pacemaker -History of atrial fibrillation Toprol-XL 50 mg a day -CAD with a prior history of stent: Coronary bypass Toprol-XL. Aspirin -Hyperlipidemia Zocor 40 mg daily at bedtime -Essential hypertension Toprol-XL 50 mg a day -Obstructive sleep apnea uses CPAP -Hypothyroid Synthroid 75 g a day -BPH Proscar 5 mg daily Flomax 0.4 mg a day -Primary osteoarthritis Pain medications as needed discussed with patient. Discussed with patient. 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 mac. cataracts removed,right knee replaced,Watchman procedure,CABG-1989,2016-2 vessels w/ mitral valve repair Past Anesthesia/Blood Transfusion Reactions: No Reported Reaction Additional Past Anesthesia/Blood Transfusion Reaction / Comment(s): no known hx blood transfusion Date of Last Stent Placement:: 2017 Type of Cardiac Device: Permanent Pacemaker Device Placement Date:: 2006,2010,2021 Past Psychological History: No Psychological Hx Reported Smoking Status: Never smoker Past Alcohol Use History: None Reported Past Drug Use History: None Reported - Past Family History Mother Family Medical History: No Reported History Sister(s) Family Medical History: Cancer Additional Family Medical History / Comment(s): breast CA Medications and Allergies Home Medications Medication Instructions Recorded Confirmed Type Ferrous Sulfate [Iron (65 MG 325 mg PO BID 05/23/21 10/18/23 History Elemental)] Finasteride [Proscar] 5 mg PO DAILY 05/23/21 10/18/23 History Latanoprost Ophth [Xalatan 0.005%] 1 drop BOTH EYES HS 05/23/21 10/18/23 History Levothyroxine Sodium [Synthroid] 75 mcg PO DAILY 05/23/21 10/18/23 History Multivitamins, Thera [Multivitamin 1 tab PO DAILY 05/23/21 10/18/23 History (formulary)] Simvastatin [Zocor] 40 mg PO HS 05/23/21 10/18/23 History Tamsulosin HCl [Flomax] 0.4 mg PO DAILY 05/23/21 10/18/23 History Ubidecarenone [Co Q-10] 100 mg PO BID-W/MEALS 05/23/21 10/18/23 History Ascorbic Acid [Vitamin C] 500 mg PO DAILY 08/07/23 10/18/23 History Aspirin [Adult Low Dose Aspirin EC] 81 mg PO DAILY 08/07/23 10/18/23 History Famotidine 20 mg PO HS 08/07/23 10/18/23 History Furosemide [Lasix] 20 mg PO BID 08/07/23 10/18/23 History Metoprolol Succinate (ER) [Toprol 50 mg PO DAILY@1200 08/07/23 10/18/23 History XL] Spironolactone [Aldactone] 25 mg PO DAILY 08/07/23 10/18/23 History Magnesium 250 mg PO DAILY 08/24/23 10/18/23 History Acetaminophen Tab [Tylenol] 650 mg PO Q6H PRN 10/18/23 10/18/23 History Calcium Carbonate [Calcium] 600 mg PO DAILY 10/18/23 10/18/23 History Psyllium Husk 100% [Metamucil 6 gm PO BID 10/18/23 10/18/23 History Packet] Psyllium Husk 100% [Metamucil 6 gm PO DAILY PRN 10/18/23 10/18/23 History Packet] Allergies Allergy/AdvReac Type Severity Reaction Status Date / Time hydromorphone [From Dilaudid] AdvReac Nausea & Verified 10/18/23 20:18 Vomiting Physical Exam Vitals: Vital Signs Temp Pulse Resp BP Pulse Ox 10/18/23 20:04 63 16 121/92 10/18/23 18:02 98.8 F 69 18 126/68 98 Intake and Output 10/18/23 10/18/23 10/18/23 06:59 14:59 22:59 Other: Weight 90.718 kg Results CBC & Chem 7: 10/18/23 18:41 10/18/23 18:41 Labs: Abnormal Lab Results - Last 24 Hours (Table) 10/18/23 10/18/23 10/18/23 Range/Units 18:41 18:41 18:41 RBC 4.03 L (4.30-5.90) m/uL Hgb 12.9 L (13.0-17.5) gm/dL Plt Count 123 L (150-450) k/uL PT 12.8 H (10.0-12.5) sec INR 1.2 H (<1.2) Sodium 134 L (137-145) mmol/L Chloride 97 L (98-107) mmol/L Total Bilirubin 2.2 H (0.2-1.3) mg/dL Troponin I (0.000-0.034) ng/mL Urine Protein (Negative) Urine Blood (Negative) Ur Leukocyte Esterase (Negative) Urine RBC (0-5) /hpf Urine WBC (0-5) /hpf Urine WBC Clumps (None) /hpf Urine Bacteria (None) /hpf 10/18/23 10/18/23 Range/Units 18:41 19:01 RBC (4.30-5.90) m/uL Hgb (13.0-17.5) gm/dL Plt Count (150-450) k/uL PT (10.0-12.5) sec INR (<1.2) Sodium (137-145) mmol/L Chloride (98-107) mmol/L Total Bilirubin (0.2-1.3) mg/dL Troponin I 0.075 H* (0.000-0.034) ng/mL Urine Protein 1+ H (Negative) Urine Blood Large H (Negative) Ur Leukocyte Esterase Large H (Negative) Urine RBC >182 H (0-5) /hpf Urine WBC 108 H (0-5) /hpf Urine WBC Clumps Few H (None) /hpf Urine Bacteria Occasional H (None) /hpf
[2023-10-18] MEDS: ATORVASTATIN 20 MG TAB PO SCH (21:02)
[2023-10-18] MEDS: FAMOTIDINE 20 MG TAB PO SCH (21:02)
[2023-10-18] MEDS: PSYLLIUM HUSK 100% 6 GM PACKET PO SCH (21:08)
[2023-10-18] MEDS: LATANOPROST 0.005% OPHTH DROPS 2.5 ML BTL BOTH EYES SCH (21:57)
[2023-10-19] MEDS: NON FORMULARY DRUG (Ubidecarenone [Co Q-10] 100 MG Capsule) PO SCH ×2 (07:17→15:37)
[2023-10-19] MEDS: ASPIRIN 81 MG PO SCH (07:41)
[2023-10-19] MEDS: MAGNESIUM OXIDE 400 MG TAB PO SCH (07:41)
[2023-10-19] MEDS: PSYLLIUM HUSK 100% 6 GM PACKET PO SCH ×2 (07:41→21:14)
[2023-10-19] MEDS: MULTIVITAMINS, THERA 1 EACH TAB PO SCH (07:41)
[2023-10-19] MEDS: FINASTERIDE 5 MG TAB PO SCH (07:42)
[2023-10-19] MEDS: LEVOTHYROXINE 75 MCG TAB PO SCH (07:42)
[2023-10-19] MEDS: ASCORBIC ACID 500 MG TAB PO SCH (07:42)
[2023-10-19] MEDS: TAMSULOSIN 0.4 MG CAP.ER.24H PO SCH (07:42)
[2023-10-19] MEDS: SPIRONOLACTONE 25 MG TAB PO SCH (07:42)
[2023-10-19] MEDS ORDERED: FUROSEMIDE 10 MG/ML 4 ML VIAL IV SCH (09:00)
[2023-10-19] MEDS: SACUBITRIL/VALSARTAN 24 MG-26 MG TABLET PO SCH ×2 (09:46→20:53)
--- NOTE | 2023-10-19 11:01 | CA ---
Transthoracic Echo Report Name: Tony Kimball Age: 87 Gender: M : 1935 Exam Date: 10/19/2023 08:50 Exam Location: [facility] Ht (in): 72 Wt (lb): 200 Ordering Physician: Juvenal Vargas MD Attending/Referring Phys: Battery Wrecker Operator Etta Borja RDCS Procedure CPT: Indications: chf Cardiac Hx: Technical Quality: Fair Contrast 1: Total Dose (mL): Contrast 2: Total Dose (mL): MEASUREMENTS (Male / Female) Normal Values 2D ECHO LV Diastolic Diameter PLAX 5.1 cm 4.2 - 5.9 / 3.9 - 5.3 cm LV Systolic Diameter PLAX 3.2 cm IVS Diastolic Thickness 1.3 cm 0.6 - 1.0 / 0.6 - 0.9 cm LVPW Diastolic Thickness 1.5 cm 0.6 - 1.0 / 0.6 - 0.9 cm LV Relative Wall Thickness 0.5 RV Internal Dim ED PLAX 5.1 cm LVOT Diameter 1.7 cm LA Volume 138.9 cm??? 18 - 58 / 22 - 52 cm??? LA Volume Index 64.3 cm???/m??? 16 - 28 cm???/m??? M-MODE Aortic Root Diameter MM 3.6 cm LA Systolic Diameter MM 5.8 cm LA Ao Ratio MM 1.6 AV Cusp Separation MM 1.9 cm DOPPLER AV Peak Velocity 140.5 cm/s AV Peak Gradient 7.9 mmHg AV Mean Velocity 83.8 cm/s AV Mean Gradient 3.4 mmHg AV Velocity Time Integral 24.6 cm AI Peak Velocity 195.1 cm/s AI Peak Gradient 15.2 mmHg AI Pressure Half Time 470.9 ms LVOT Peak Velocity 71.6 cm/s LVOT Peak Gradient 2.1 mmHg LVOT Velocity Time Integral 15.0 cm LVOT Stroke Volume 34.4 cm??? LVOT Stroke Volume Index 16.1 ml/m??? LVOT Cardiac Index 1273.3 cm???/min???m??? AV Area Cont Eq vti 1.4 cm??? AV Area Cont Eq pk 1.2 cm??? MV Peak Velocity 179.3 cm/s MV Peak Gradient 12.9 mmHg MV Mean Velocity 76.2 cm/s MV Mean Gradient 3.1 mmHg MV Velocity Time Integral 41.5 cm MV Area PHT 2.8 cm??? Mitral E Point Velocity 137.5 cm/s Mitral A Point Velocity 0.0 cm/s Mitral E to A Ratio 95907.9 MV Deceleration Time 274.0 ms MV E' Velocity 6.8 cm/s Mitral E to MV E' Ratio 20.2 TR Peak Velocity 354.8 cm/s TR Peak Gradient 50.4 mmHg Right Ventricular Systolic Press 54.9 mmHg FINDINGS Left Ventricle Mildly increased left ventricular wall thickness. Left ventricular cavity size normal. Abnormal (paradoxical) septal motion consistent with postoperative state. Left ventricular ejection fraction is estimated at 45 %. Right Ventricle Severe right ventricular dilatation. Severe pulmonary hypertension. Right ventricular systolic pressure estimated at 55 mm hg. Right Atrium Right atrial dilatation. Catheter/pacemaker wire in the right atrial cavity. Left Atrium Severely increased left atrial volume. Moderately increased left atrial area. Mitral Valve Severe mitral annular calcification. Mitral valve thickened. [id number] mitral regurgitation. Aortic Valve Trileaflet aortic valve. Thickened aortic valve without stenosis. Trace aortic regurgitation. Tricuspid Valve Severe tricuspid regurgitation. Pulmonic Valve Structurally normal pulmonic valve. Pericardium No pericardial effusion. Aorta Normal size aortic root and proximal ascending aorta. CONCLUSIONS LV size is normal fairly well-preserved systolic function with atypical septal motion and ejection fraction of 45-50%. Severe right ventricular enlargement noted significant with moderate to severe pulmonary hypertension. Left atrial and right atrium are both enlarged. Mitral annular calcification. Moderate mitral regurgitation as well as severe tricuspid regurgitation. Moderate to severe pulmonary hypertension . No pericardial Previewed by: Dr. Melanie Schmitt MD (Electronically Signed) Final Date: 19 October 2023 11:00
[2023-10-19] MEDS: METOPROLOL SUCCINATE (ER) 50 MG TAB.ER.24H PO SCH (11:03)
--- NOTE | 2023-10-19 13:32 | P.CRDCN ---
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 He has a past medical history of chronic atrial fibrillation, pacemaker implantation, coronary artery disease with previous CABG in 1991 vessel with mitral valve repair, coronary stents, details are not known, hypertension, hyperlipidemia, cardiomyopathy, hypothyroidism, urinary retention with chronic Santos. We have been asked to evaluate the patient for CHF and troponin elevation. Patient complains of increasing shortness of breath more so with exertion but he does have this also with sitting when he is watching TV. Patient noted to not be on ACEI/ARB and he does not recall being on one in the past. The pressure is now 138/68. Patient states that yesterday he woke up and started having dark red blood from his Santos catheter. He attempted to try his urologist and PCP ended up driving himself to [facility] and was then transferred to [facility]. Patient is status post 1 dose of IV Lasix 40 mg.. EKG ventricularly paced rhythm Chest x-ray: Cardiomegaly and mild pulmonary vascular congestion. Small left pleural effusion. WBC 9.6, hemoglobin 12.9, platelet count 123. INR 1.2. Sodium 134, potassium 4, chloride 97, CO2 28, BUN 17 creatinine 0.74. Troponin 0.075. ProBNP 2590. Liver function tests are normal except for total bilirubin of 2.2. Urinalysis positive for infection. Home cardiac medications: Aspirin 81 mg daily, Lasix 20 mg twice daily, magnesium 250 mg daily, Toprol-XL 50 mg at noon, simvastatin 40 mg at bedtime, Aldactone 25 mg daily, also on levothyroxine 75 g daily. Echocardiogram performed 10/18/2023 reveals EF 45-50%. Moderate to severe pulmonary hypertension. Moderate mitral regurgitation and severe tricuspid regurgitation. No pericardial effusion. Review Of Systems: At the time of my exam: CONSTITUTIONAL: Denies fever or chills. CARDIOVASCULAR: Denies chest pain, reports shortness of breath, no orthopnea, PND or palpitations. RESPIRATORY: Denies cough. Reports dyspnea on exertion GASTROINTESTINAL: Denies abdominal pain, diarrhea, constipation, nausea or vomi ting. MUSCULOSKELETAL: Denies myalgias. NEUROLOGIC: Denies numbness, tingling or weakness. ENDOCRINE: Denies fatigue, weight change, polydipsia or polyurina. GENITOURINARY: Denies burning, hematuria or urgency with micturation. HEMATOLOGIC: Denies history of anemia or bleeding. Physical examination: Gen: This is an 87-year-old male resting and appears to be in no acute distress. VS: reviewed HEENT: Head is atraumatic, normocephalic. Pupils equal, round. Sclerae is anicteric. NECK: Supple. No JVD. LUNGS: Clear to auscultation. No wheezes or rhonchi. No intercostal retractions. HEART: Regular rate and rhythm. Systolic murmur. ABDOMEN: Soft No tenderness. EXTREMITIES: No pedal edema. No calf tenderness. NEUROLOGICAL: Patient is awake, alert and oriented x3. Assessment: Mild acute systolic heart failure Cardiomyopathy Chronic atrial fibrillation History of coronary artery disease with previous CABG and stenting, details are not known History of watchman procedure Hypertension Hyperlipidemia Hypothyroidism Benign prostatic hypertrophy with urinary retention Hematuria Plan: Resume patient's home cardiac medications Start patient on oral Lasix tomorrow Start patient on Entresto 24 mg26 mg one twice daily BMP and magnesium level tomorrow Further recommendations to follow based upon clinical course Thank you kindly for this consultation. Nurse practitioner note has been reviewed, I agree with documented findings and plan of care. Patient was seen and examined. 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 mac. cataracts removed,right knee replaced,Watchman procedure,CABG-1989,2017- vessels w/ mitral valve repair Past Anesthesia/Blood Transfusion Reactions: No Reported Reaction Additional Past Anesthesia/Blood Transfusion Reaction / Comment(s): no known hx blood transfusion Date of Last Stent Placement:: 2017 Type of Cardiac Device: Permanent Pacemaker Device Placement Date:: 2006,2010,2021 Past Psychological History: No Psychological Hx Reported Smoking Status: Never smoker Past Alcohol Use History: None Reported Past Drug Use History: None Reported - Past Family History Mother Family Medical History: No Reported History Sister(s) Family Medical History: Cancer Additional Family Medical History / Comment(s): breast CA Medications and Allergies Home Medications Medication Instructions Recorded Confirmed Type Ferrous Sulfate [Iron (65 MG 325 mg PO BID 05/23/21 10/18/23 History Elemental)] Finasteride [Proscar] 5 mg PO DAILY 05/23/21 10/18/23 History Latanoprost Ophth [Xalatan 0.005%] 1 drop BOTH EYES HS 05/23/21 10/18/23 History Levothyroxine Sodium [Synthroid] 75 mcg PO DAILY 05/23/21 10/18/23 History Multivitamins, Thera [Multivitamin 1 tab PO DAILY 05/23/21 10/18/23 History (formulary)] Simvastatin [Zocor] 40 mg PO HS 05/23/21 10/18/23 History Tamsulosin HCl [Flomax] 0.4 mg PO DAILY 05/23/21 10/18/23 History Ubidecarenone [Co Q-10] 100 mg PO BID-W/MEALS 05/23/21 10/18/23 History Ascorbic Acid [Vitamin C] 500 mg PO DAILY 08/07/23 10/18/23 History Aspirin [Adult Low Dose Aspirin EC] 81 mg PO DAILY 08/07/23 10/18/23 History Famotidine 20 mg PO HS 08/07/23 10/18/23 History Furosemide [Lasix] 20 mg PO BID 08/07/23 10/18/23 History Metoprolol Succinate (ER) [Toprol 50 mg PO DAILY@1200 08/07/23 10/18/23 History XL] Spironolactone [Aldactone] 25 mg PO DAILY 08/07/23 10/18/23 History Magnesium 250 mg PO DAILY 08/24/23 10/18/23 History Acetaminophen Tab [Tylenol] 650 mg PO Q6H PRN 10/18/23 10/18/23 History Calcium Carbonate [Calcium] 600 mg PO DAILY 10/18/23 10/18/23 History Psyllium Husk 100% [Metamucil 6 gm PO BID 10/18/23 10/18/23 History Packet] Psyllium Husk 100% [Metamucil 6 gm PO DAILY PRN 10/18/23 10/18/23 History Packet] Allergies Allergy/AdvReac Type Severity Reaction Status Date / Time hydromorphone [From Dilaudid] AdvReac Nausea & Verified 10/18/23 20:18 Vomiting Physical Exam Vitals: Vital Signs Temp Pulse Pulse Resp BP BP Pulse Ox 10/19/23 07:47 97 F L 63 17 114/69 97 10/19/23 05:00 61 16 140/81 92 L 10/19/23 03:00 60 16 128/76 92 L 10/19/23 00:30 58 L 16 130/67 93 L 10/18/23 21:08 68 16 106/68 92 L 10/18/23 20:04 63 16 121/92 10/18/23 18:02 98.8 F 69 18 126/68 98 Intake and Output 10/18/23 10/19/23 10/19/23 22:59 06:59 14:59 Output Total 1600 Balance -1600 Output: Urine 1600 Other: Weight 90.718 kg Results 10/18/23 18:41 10/18/23 18:41 Cardiac Enzymes 10/18/23 10/18/23 Range/Units 18:41 18:41 AST 51 (17-59) U/L Troponin I 0.075 H* (0.000-0.034) ng/mL Coagulation 10/18/23 Range/Units 18:41 PT 12.8 H (10.0-12.5) sec APTT 26.6 (22.0-30.0) sec CBC 10/18/23 Range/Units 18:41 WBC 9.6 (3.8-10.6) k/uL RBC 4.03 L (4.30-5.90) m/uL Hgb 12.9 L (13.0-17.5) gm/dL Hct 39.4 (39.0-53.0) % Plt Count 123 L (150-450) k/uL Comprehensive Metabolic Panel 10/18/23 Range/Units 18:41 Sodium 134 L (137-145) mmol/L Potassium 4.0 (3.5-5.1) mmol/L Chloride 97 L (98-107) mmol/L Carbon Dioxide 28 (22-30) mmol/L BUN 17 (9-20) mg/dL Creatinine 0.74 (0.66-1.25) mg/dL Glucose 87 (74-99) mg/dL Calcium 9.1 (8.4-10.2) mg/dL AST 51 (17-59) U/L ALT 24 (4-49) U/L Alkaline Phosphatase 124 (38-126) U/L Total Protein 6.7 (6.3-8.2) g/dL Albumin 3.8 (3.5-5.0) g/dL Current Medications Generic Name Dose Route Start Last Admin Trade Name Freq PRN Reason Stop Dose Admin Acetaminophen 650 mg 10/18/23 18:45 Acetaminophen Tab 325 Mg Tab PO Q6HR PRN Mild Pain or Fever > 100.5 Alprazolam 0.25 mg 10/18/23 20:48 Alprazolam 0.25 Mg Tab PO Q6HR PRN Anxiety Ascorbic Acid 500 mg 10/19/23 09:00 10/19/23 07:42 Ascorbic Acid 500 Mg Tab PO 500 mg DAILY UMER Administration Aspirin 81 mg 10/19/23 09:00 10/19/23 07:41 Aspirin 81 Mg PO 81 mg DAILY UMER Administration Atorvastatin Calcium 20 mg 10/18/23 21:00 10/18/23 21:02 Atorvastatin 20 Mg Tab PO 20 mg HS UMER Administration Calcium Carbonate/Glycine 1,000 mg 10/18/23 20:48 Calcium Carbonate 500 Mg Chewable PO Q4HR PRN Dyspepsia Famotidine 20 mg 10/18/23 21:00 10/18/23 21:02 Famotidine 20 Mg Tab PO 20 mg HS UMER Administration Finasteride 5 mg 10/19/23 09:00 10/19/23 07:42 Finasteride 5 Mg Tab PO 5 mg DAILY UMER Administration Furosemide 40 mg 10/19/23 09:00 10/19/23 07:42 Furosemide 10 Mg/Ml 4 Ml Vial IV 40 mg Q12HR UMER Administration Lactulose 20 gm 10/18/23 20:48 Lactulose 20 Gm/30 Ml Cup PO DAILY PRN Constipation Latanoprost 1 drops 10/18/23 21:00 10/18/23 21:57 Latanoprost 0.005% Ophth Drops 2.5 Ml Btl BOTH EYES 1 drops HS UMER Administration Levothyroxine Sodium 75 mcg 10/19/23 06:30 10/19/23 07:42 Levothyroxine 75 Mcg Tab PO 75 mcg 0630 UMER Administration Magnesium Oxide 400 mg 10/19/23 09:00 10/19/23 07:41 Magnesium Oxide 400 Mg Tab PO 400 mg DAILY UMER Administration Melatonin 3 mg 10/18/23 20:48 Melatonin 3 Mg Tablet PO HS PRN Insomnia Metoprolol Succinate 50 mg 10/19/23 12:00 Metoprolol Succinate (Er) 50 Mg Tab.Er.24h PO DAILY@1200 [facility] Multivitamins 1 each 10/19/23 09:00 10/19/23 07:41 Multivitamins, Thera 1 Each Tab PO 1 each DAILY UMER Administration Naloxone HCl 0.2 mg 10/18/23 18:45 Naloxone 0.4 Mg/Ml 1 Ml Vial IV Q2M PRN Opioid Reversal Non-Formulary Medication 100 mg 10/19/23 07:30 10/19/23 07:17 Ubidecarenone [Co Q-10] PO Not Given BID-W/MEALS [facility] Ondansetron HCl 4 mg 10/18/23 20:48 Ondansetron 4 Mg/2 Ml Vial IVP Q8HR PRN Nausea And Vomiting Psyllium Hydrophilic Mucilloid 6 gm 10/18/23 20:47 Psyllium Husk 100% 6 Gm Packet PO DAILY PRN Constipation Psyllium Hydrophilic Mucilloid 6 gm 10/18/23 21:00 10/19/23 07:41 Psyllium Husk 100% 6 Gm Packet PO 6 gm BID [facility] Administration Spironolactone 25 mg 10/19/23 09:00 10/19/23 07:42 Spironolactone 25 Mg Tab PO 25 mg DAILY [facility] Administration Tamsulosin HCl 0.4 mg 10/19/23 09:00 10/19/23 07:42 Tamsulosin 0.4 Mg Cap.Er.24h PO 0.4 mg DAILY [facility] Administration Intake and Output 10/18/23 10/19/23 10/19/23 22:59 06:59 14:59 Output Total 1600 Balance -1600 Output: Urine 1600 Other: Weight 90.718 kg 10/18/23 18:41 10/18/23 18:41
--- NOTE | 2023-10-19 16:36 | P.PN ---
Progress Note - Text Progress Note Date: 10/19/23 Chief Complaint: Hematuria This is a pleasant 87-year-old patient who follows with Dr. Brad Escobar. 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 In August 2023 patient underwent right inguinal hernia repair. Patient had to have a Santos catheter placed at that time. Patient's had intermittent red unit/bleeding. Today he became significantly more. Denies any pelvic discomfort or pain. No fever no chills. Decided to come in. Patient's is admitted to [facility]. Appetite is fair. 10/19/2023: Admitted with CHF exacerbation. Received IV Lasix. Doing better. Also intermittent hematuria. Urology consulted. Edema is come down. Active Medications Acetaminophen (Acetaminophen Tab 325 Mg Tab) 650 mg PO Q6HR PRN PRN Reason: Mild Pain or Fever > 100.5 Alprazolam (Alprazolam 0.25 Mg Tab) 0.25 mg PO Q6HR PRN PRN Reason: Anxiety Ascorbic Acid (Ascorbic Acid 500 Mg Tab) 500 mg PO DAILY [facility] Last Admin: 10/19/23 07:42 Dose: 500 mg Aspirin (Aspirin 81 Mg) 81 mg PO DAILY [facility] Last Admin: 10/19/23 07:41 Dose: 81 mg Atorvastatin Calcium (Atorvastatin 20 Mg Tab) 20 mg PO [facility] Last Admin: 10/18/23 21:02 Dose: 20 mg Calcium Carbonate/Glycine (Calcium Carbonate 500 Mg Chewable) 1,000 mg PO Q4HR PRN PRN Reason: Dyspepsia Famotidine (Famotidine 20 Mg Tab) 20 mg PO [facility] Last Admin: 10/18/23 21:02 Dose: 20 mg Finasteride (Finasteride 5 Mg Tab) 5 mg PO DAILY [facility] Last Admin: 10/19/23 07:42 Dose: 5 mg Furosemide (Furosemide 40 Mg Tab) 40 mg PO DAILY [facility] Lactulose (Lactulose 20 Gm/30 Ml Cup) 20 gm PO DAILY PRN PRN Reason: Constipation Latanoprost (Latanoprost 0.005% Ophth Drops 2.5 Ml Btl) 1 drops BOTH EYES [facility] Last Admin: 10/18/23 21:57 Dose: 1 drops Levothyroxine Sodium (Levothyroxine 75 Mcg Tab) 75 mcg PO 0630 [facility] Last Admin: 10/19/23 07:42 Dose: 75 mcg Magnesium Oxide (Magnesium Oxide 400 Mg Tab) 400 mg PO DAILY [facility] Last Admin: 10/19/23 07:41 Dose: 400 mg Melatonin (Melatonin 3 Mg Tablet) 3 mg PO HS PRN PRN Reason: Insomnia Metoprolol Succinate (Metoprolol Succinate (Er) 50 Mg Tab.Er.24h) 50 mg PO DAILY@1200 [facility] Last Admin: 10/19/23 11:03 Dose: 50 mg Multivitamins (Multivitamins, Thera 1 Each Tab) 1 each PO DAILY [facility] Last Admin: 10/19/23 07:41 Dose: 1 each Naloxone HCl (Naloxone 0.4 Mg/Ml 1 Ml Vial) 0.2 mg IV Q2M PRN PRN Reason: Opioid Reversal Non-Formulary Medication (Ubidecarenone [Co Q-10]) 100 mg PO BID-W/MEALS [facility] Last Admin: 10/19/23 15:37 Dose: Not Given Ondansetron HCl (Ondansetron 4 Mg/2 Ml Vial) 4 mg IVP Q8HR PRN PRN Reason: Nausea And Vomiting Psyllium Hydrophilic Mucilloid (Psyllium Husk 100% 6 Gm Packet) 6 gm PO DAILY PRN PRN Reason: Constipation Psyllium Hydrophilic Mucilloid (Psyllium Husk 100% 6 Gm Packet) 6 gm PO BID [facility] Last Admin: 10/19/23 07:41 Dose: 6 gm Sacubitril/Valsartan (Sacubitril/Valsartan 24 Mg-26 Mg Tablet) 1 each PO BID [facility] Last Admin: 10/19/23 09:46 Dose: 1 each Spironolactone (Spironolactone 25 Mg Tab) 25 mg PO DAILY [facility] Last Admin: 10/19/23 07:42 Dose: 25 mg Tamsulosin HCl (Tamsulosin 0.4 Mg Cap.Er.24h) 0.4 mg PO DAILY [facility] Last Admin: 10/19/23 07:42 Dose: 0.4 mg Social history: Nonsmoking. No alcohol. . Physical examination: VITAL SIGNS: 97.5, 61, 16, 100/63, 97% room air GENERAL: Sitting up in bed, breathing better. EYES: Pupils equal. Conjunctiva normal. HEENT: External appearance of nose and ears normal, oral cavity grossly normal. NECK: JVD not raised; masses not palpable. HEART: First and second heart sounds are normal; decreased edema LUNGS: Respiratory rate normal; clear to auscultation. ABDOMEN: Soft, nontender, liver spleen not palpable, no masses palpable. : Santos catheter: Urine cleared up PSYCH: Alert and oriented x3; mood and affect normal. MUSCULOSKELETAL:No Clubbing/cyanosis;muscles-grossly intact. OA NEUROLOGICAL: Cranial nerves grossly intact; no facial asymmetry, power and sensation grossly intact. LYMPHATICS: No lymph nodes palpable in the axilla and neck INVESTIGATIONS, reviewed in the clinical context: 2-D echocardiogram: EF 45-50%. Moderate to severe pulmonary hypertension. Moderate mitral regurgitation and severe tricuspid regurgitation. 10/18/2023: White count 9.6 hemoglobin 12.9 platelets 123 sodium 134 potassium 4 creatinine 0.74 EKG tracing personally reviewed by me-ventricular pacemaker 9 Chest x-ray film personally reviewed by me-cardiomegaly. Venous prominence Previous labs: 08/30/2023 hemoglobin 13.2 Assessment and plan: -Acute congestive heart failure exacerbation: Possibly from diastolic dysfunction EF 45-50%-improving IV Lasix-gear changer to by mouth Lasix Cardiology following. 2-D echo -Intermittent hematuria present for about 4 weeks. Progressively getting more. Consults urology -Moderate to severe secondary pulmonary hypertension -Moderate mitral regurgitation, severe tricuspid regurgitation -Pacemaker -History of atrial fibrillation Toprol-XL 50 mg a day -CAD with a prior history of stent: Coronary bypass Toprol-XL. Aspirin -Hyperlipidemia Zocor 40 mg daily at bedtime -Essential hypertension Toprol-XL 50 mg a day -Obstructive sleep apnea uses CPAP -Hypothyroid Synthroid 75 g a day -BPH Proscar 5 mg daily Flomax 0.4 mg a day -Primary osteoarthritis Pain medications as needed discussed with patient. Patient doing a bit better. Follow today. Urology consulted. If continues to improve discharge home tomorrow. 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 mac. cataracts removed,right knee replaced,Watchman procedure,CABG-1989,2017-2 vessels w/ mitr al valve repair Past Anesthesia/Blood Transfusion Reactions: No Reported Reaction Additional Past Anesthesia/Blood Transfusion Reaction / Comment(s): no known hx blood transfusion Date of Last Stent Placement:: 2017 Type of Cardiac Device: Permanent Pacemaker Device Placement Date:: 2006,2010,2021 Past Psychological History: No Psychological Hx Reported Smoking Status: Never smoker Past Alcohol Use History: None Reported Past Drug Use History: None Reported
[2023-10-19] MEDS: FAMOTIDINE 20 MG TAB PO SCH (20:53)
[2023-10-19] MEDS: ATORVASTATIN 20 MG TAB PO SCH (20:53)
[2023-10-19] MEDS: LATANOPROST 0.005% OPHTH DROPS 2.5 ML BTL BOTH EYES SCH (20:54)
[2023-10-20] MEDS: LEVOTHYROXINE 75 MCG TAB PO SCH (06:11)
[2023-10-20 08:21] LABS: African American GFR (CKD) >90 (>60 ml/min/1.73 sqM); Anion Gap 8 mmol/L; Blood Urea Nitrogen 16 mg/dL (9-20); Calcium 8.7 mg/dL (8.4-10.2); Carbon Dioxide 31 mmol/L (22-30); Chloride 98 mmol/L (98-107); Glucose 117 mg/dL (74-99); Magnesium 2.1 mg/dL (1.6-2.3); Non-African American GFR(CKD) 86 (>60 ml/min/1.73 sqM); Potassium 3.4 mmol/L (3.5-5.1); Sodium 137 mmol/L (137-145)
[2023-10-20] MEDS: NON FORMULARY DRUG (Ubidecarenone [Co Q-10] 100 MG Capsule) PO SCH ×2 (08:26→12:20)
[2023-10-20] MEDS ORDERED: FUROSEMIDE 40 MG TAB PO SCH (09:00)
--- NOTE | 2023-10-20 09:06 | P.GSCN ---
History of Present Illness Consult date: 10/20/23 Reason for Consult: Gross hematuria History of present illness: This is an 87-year-old male admitted to the hospital with gross hematuria and C HF exacerbation. Urology is consulted for gross hematuria. Patient has history of urinary retention following right inguinal hernia repair on August 29. Has failed two trial of voids. He follows up with Dr. Reece at [facility]. He indicated he noticed gross hematuria yesterday and that he presented to the ER. Denies any previous episodes of gross hematuria. No known history of malignancies. 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 He indicated he does have a follow-up set up with Dr. Reece on October 23. 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 mac. cataracts removed,right knee replaced,Watchman procedure,CABG-1989,2017-2 vessels w/ mitral valve repair Past Anesthesia/Blood Transfusion Reactions: No Reported Reaction Additional Past Anesthesia/Blood Transfusion Reaction / Comm: no known hx blood transfusion Date of Last Stent Placement:: 2017 Type of Cardiac Device: Permanent Pacemaker Device Placement Date:: 2006,2010,2021 Past Psychological History: No Psychological Hx Reported Smoking Status: Never smoker Past Alcohol Use History: None Reported Past Drug Use History: None Reported - Past Family History Mother Family Medical History: No Reported History Sister(s) Family Medical History: Cancer Additional Family Medical History / Comment(s): breast CA Medications and Allergies Home Medications Medication Instructions Recorded Confirmed Type Ferrous Sulfate [Iron (65 MG 325 mg PO BID 05/23/21 10/18/23 History Elemental)] Finasteride [Proscar] 5 mg PO DAILY 05/23/21 10/18/23 History Latanoprost Ophth [Xalatan 0.005%] 1 drop BOTH EYES HS 05/23/21 10/18/23 History Levothyroxine Sodium [Synthroid] 75 mcg PO DAILY 05/23/21 10/18/23 History Multivitamins, Thera [Multivitamin 1 tab PO DAILY 05/23/21 10/18/23 History (formulary)] Simvastatin [Zocor] 40 mg PO HS 05/23/21 10/18/23 History Tamsulosin HCl [Flomax] 0.4 mg PO DAILY 05/23/21 10/18/23 History Ubidecarenone [Co Q-10] 100 mg PO BID-W/MEALS 05/23/21 10/18/23 History Ascorbic Acid [Vitamin C] 500 mg PO DAILY 08/07/23 10/18/23 History Aspirin [Adult Low Dose Aspirin EC] 81 mg PO DAILY 08/07/23 10/18/23 History Famotidine 20 mg PO HS 08/07/23 10/18/23 History Furosemide [Lasix] 20 mg PO BID 08/07/23 10/18/23 History Metoprolol Succinate (ER) [Toprol 50 mg PO DAILY@1200 08/07/23 10/18/23 History XL] Spironolactone [Aldactone] 25 mg PO DAILY 08/07/23 10/18/23 History Magnesium 250 mg PO DAILY 08/24/23 10/18/23 History Acetaminophen Tab [Tylenol] 650 mg PO Q6H PRN 10/18/23 10/18/23 History Calcium Carbonate [Calcium] 600 mg PO DAILY 10/18/23 10/18/23 History Psyllium Husk 100% [Metamucil 6 gm PO BID 10/18/23 10/18/23 History Packet] Psyllium Husk 100% [Metamucil 6 gm PO DAILY PRN 10/18/23 10/18/23 History Packet] Allergies Allergy/AdvReac Type Severity Reaction Status Date / Time hydromorphone [From Dilaudid] AdvReac Nausea & Verified 10/18/23 20:18 Vomiting Surgical - Exam Vital Signs Temp Pulse Resp BP Pulse Ox 98.8 F 69 18 126/68 98 10/18/23 18:02 10/18/23 18:02 10/18/23 18:02 10/18/23 18:02 10/18/23 18:02 - General no distress, no pain - Eyes normal ocular movement, no pale - ENT normal nares, normal mucosa - Respiratory normal expansion, normal respiratory effort - Abdomen Abdomen: soft, non tender, no distended - Psychiatric oriented to time, oriented to person, oriented to place Results - Labs 10/18/23 18:41 10/20/23 07:47 Abnormal Lab Results - Last 24 Hours (Table) 10/20/23 Range/Units 07:47 Potassium 3.4 L (3.5-5.1) mmol/L Carbon Dioxide 31 H (22-30) mmol/L Glucose 117 H (74-99) mg/dL Diabetes panel 10/20/23 Range/Units 07:47 Sodium 137 (137-145) mmol/L Potassium 3.4 L (3.5-5.1) mmol/L Chloride 98 (98-107) mmol/L Carbon Dioxide 31 H (22-30) mmol/L BUN 16 (9-20) mg/dL Creatinine 0.70 (0.66-1.25) mg/dL Glucose 117 H (74-99) mg/dL Calcium 8.7 (8.4-10.2) mg/dL Calcium panel 10/20/23 Range/Units 07:47 Calcium 8.7 (8.4-10.2) mg/dL Pituitary panel 10/20/23 Range/Units 07:47 Sodium 137 (137-145) mmol/L Potassium 3.4 L (3.5-5.1) mmol/L Chloride 98 (98-107) mmol/L Carbon Dioxide 31 H (22-30) mmol/L BUN 16 (9-20) mg/dL Creatinine 0.70 (0.66-1.25) mg/dL Glucose 117 H (74-99) mg/dL Calcium 8.7 (8.4-10.2) mg/dL Adrenal panel 10/20/23 Range/Units 07:47 Sodium 137 (137-145) mmol/L Potassium 3.4 L (3.5-5.1) mmol/L Chloride 98 (98-107) mmol/L Carbon Dioxide 31 H (22-30) mmol/L BUN 16 (9-20) mg/dL Creatinine 0.70 (0.66-1.25) mg/dL Glucose 117 H (74-99) mg/dL Calcium 8.7 (8.4-10.2) mg/dL Assessment and Plan Assessment: 87-year-old male history of urinary retention be managed with Santos catheter. Presented to the ER with gross hematuria. He is a patient of Dr. Reece at [facility]. Discussed with him his hematuria is most likely secondary to prosthetic irritation from the catheter. He indicated that is planned for him to proceed with a TURP versus a urolift as an outpatient. I advised him given that he already has a relationship established with Dr. Reece at [facility] to keep his follow up for October 23. Currently his urine is clear. From my end no further intervention is needed I advised him to keep his follow-up as scheduled with his urologist
[2023-10-20] MEDS: ASPIRIN 81 MG PO SCH (09:43)
[2023-10-20] MEDS: ASCORBIC ACID 500 MG TAB PO SCH (09:43)
[2023-10-20] MEDS: SPIRONOLACTONE 25 MG TAB PO SCH (09:43)
[2023-10-20] MEDS: SACUBITRIL/VALSARTAN 24 MG-26 MG TABLET PO SCH ×2 (09:43→21:36)
[2023-10-20] MEDS: MAGNESIUM OXIDE 400 MG TAB PO SCH (09:43)
[2023-10-20] MEDS: TAMSULOSIN 0.4 MG CAP.ER.24H PO SCH (09:43)
[2023-10-20] MEDS: FINASTERIDE 5 MG TAB PO SCH (09:43)
[2023-10-20] MEDS: MULTIVITAMINS, THERA 1 EACH TAB PO SCH (09:43)
[2023-10-20] MEDS: PSYLLIUM HUSK 100% 6 GM PACKET PO SCH ×2 (09:44→17:56)
[2023-10-20] MEDS: METOPROLOL SUCCINATE (ER) 50 MG TAB.ER.24H PO SCH (12:19)
[2023-10-20] MEDS ORDERED: POTASSIUM CHLORIDE ER 20 MEQ TAB.ER PO STA (13:22)
--- NOTE | 2023-10-20 13:23 | P.PN ---
Progress Note - Text Progress Note Date: 10/20/23 Chief Complaint: Hematuria This is a pleasant 87-year-old patient who follows with Dr. Brad Escobar. 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 In August 2023 patient underwent right inguinal hernia repair. Patient had to have a Santos catheter placed at that time. Patient's had intermittent red unit/bleeding. Today he became significantly more. Denies any pelvic discomfort or pain. No fever no chills. Decided to come in. Patient's is admitted to [facility]. Appetite is fair. 10/19/2023: Admitted with CHF exacerbation. Received IV Lasix. Doing better. Also intermittent hematuria. Urology consulted. Edema is come down. 10/20/2023: On Aldactone. Edema coming down. Started on Entresto yesterday. Also on Toprol-XL. Breathing better. Seen by urology. Patient is due to follow up with Dr. Reece/to urologist outpatient. Currently no hematuria Active Medications Acetaminophen (Acetaminophen Tab 325 Mg Tab) 650 mg PO Q6HR PRN PRN Reason: Mild Pain or Fever > 100.5 Alprazolam (Alprazolam 0.25 Mg Tab) 0.25 mg PO Q6HR PRN PRN Reason: Anxiety Ascorbic Acid (Ascorbic Acid 500 Mg Tab) 500 mg PO DAILY [facility] Last Admin: 10/20/23 09:43 Dose: 500 mg Aspirin (Aspirin 81 Mg) 81 mg PO DAILY [facility] Last Admin: 10/20/23 09:43 Dose: 81 mg Atorvastatin Calcium (Atorvastatin 20 Mg Tab) 20 mg PO [facility] Last Admin: 10/19/23 20:53 Dose: 20 mg Calcium Carbonate/Glycine (Calcium Carbonate 500 Mg Chewable) 1,000 mg PO Q4HR PRN PRN Reason: Dyspepsia Famotidine (Famotidine 20 Mg Tab) 20 mg PO [facility] Last Admin: 10/19/23 20:53 Dose: 20 mg Lactulose (Lactulose 20 Gm/30 Ml Cup) 20 gm PO DAILY PRN PRN Reason: Constipation Last Admin: 10/20/23 09:44 Dose: 20 gm Latanoprost (Latanoprost 0.005% Ophth Drops 2.5 Ml Btl) 1 drops BOTH EYES HS [facility] Last Admin: 10/19/23 20:54 Dose: 1 drops Levothyroxine Sodium (Levothyroxine 75 Mcg Tab) 75 mcg PO 0630 [facility] Last Admin: 10/20/23 06:11 Dose: 75 mcg Magnesium Oxide (Magnesium Oxide 400 Mg Tab) 400 mg PO DAILY [facility] Last Admin: 10/20/23 09:43 Dose: 400 mg Melatonin (Melatonin 3 Mg Tablet) 3 mg PO HS PRN PRN Reason: Insomnia Metoprolol Succinate (Metoprolol Succinate (Er) 50 Mg Tab.Er.24h) 50 mg PO DAILY@1200 [facility] Last Admin: 10/20/23 12:19 Dose: 50 mg Multivitamins (Multivitamins, Thera 1 Each Tab) 1 each PO DAILY [facility] Last Admin: 10/20/23 09:43 Dose: 1 each Naloxone HCl (Naloxone 0.4 Mg/Ml 1 Ml Vial) 0.2 mg IV Q2M PRN PRN Reason: Opioid Reversal Non-Formulary Medication (Ubidecarenone [Co Q-10]) 100 mg PO BID-W/MEALS [facility] Last Admin: 10/20/23 12:20 Dose: Not Given Ondansetron HCl (Ondansetron 4 Mg/2 Ml Vial) 4 mg IVP Q8HR PRN PRN Reason: Nausea And Vomiting Psyllium Hydrophilic Mucilloid (Psyllium Husk 100% 6 Gm Packet) 6 gm PO DAILY PRN PRN Reason: Constipation Psyllium Hydrophilic Mucilloid (Psyllium Husk 100% 6 Gm Packet) 6 gm PO BID [facility] Last Admin: 10/20/23 09:44 Dose: Not Given Sacubitril/Valsartan (Sacubitril/Valsartan 24 Mg-26 Mg Tablet) 1 each PO BID [facility] Last Admin: 10/20/23 09:43 Dose: 1 each Spironolactone (Spironolactone 25 Mg Tab) 25 mg PO DAILY [facility] Last Admin: 10/20/23 09:43 Dose: 25 mg Social history: Nonsmoking. No alcohol. . Physical examination: VITAL SIGNS: 98.1, 65, 18, 107/65, 95% room air GENERAL: Breathing better. EYES: Pupils equal. Conjunctiva normal. HEENT: External appearance of nose and ears normal, oral cavity grossly normal. NECK: JVD not raised; masses not palpable. HEART: First and second heart sounds are normal; decreased edema LUNGS: Respiratory rate normal; clear to auscultation. ABDOMEN: Soft, nontender, liver spleen not palpable, no masses palpable. : Santos catheter: Urine cleared up PSYCH: Alert and oriented x3; mood and affect normal. MUSCULOSKELETAL:No Clubbing/cyanosis;muscles-grossly intact. OA INVESTIGATIONS, reviewed in the clinical context: 10/20/2023: Potassium 3.4 creatinine 0.7 2-D echocardiogram: EF 45-50%. Moderate to severe pulmonary hypertension. Moderate mitral regurgitation and severe tricuspid regurgitation. 10/18/2023: White count 9.6 hemoglobin 12.9 platelets 123 sodium 134 potassium 4 creatinine 0.74 EKG tracing personally reviewed by me-ventricular pacemaker 9 Chest x-ray film personally reviewed by me-cardiomegaly. 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 2-D echo -Intermittent hematuria present for about 4 weeks. Likely from prosthetic irritation from the catheter Seen by Dr. brown. Patient due to follow-up with Dr. Reece [facility]. Outpatient. -Moderate to severe secondary pulmonary hypertension -Moderate mitral regurgitation, severe tricuspid regurgitation -Pacemaker -Paroxysmal atrial fibrillation Toprol-XL 50 mg a day -CAD with a prior history of stent: Coronary bypass Toprol-XL. Aspirin -Hyperlipidemia Zocor 40 mg daily at bedtime -Essential hypertension Toprol-XL 50 mg a day -Obstructive sleep apnea uses CPAP -Hypothyroid Synthroid 75 g a day -BPH Proscar 5 mg daily Flomax 0.4 mg a day -Primary osteoarthritis Pain medications as needed discussed with patient. Patient doing better. States that he's been told by cardiology today to stay 1 more day. Repeat labs in the morning. 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 mac. cataracts removed,right knee replaced,Watchman procedure,CABG-1989,2017-2 vessels w/ mitral valve repair Past Anesthesia/Blood Transfusion Reactions: No Reported Reaction Additional Past Anesthesia/Blood Transfusion Reaction / Comment(s): no known hx blood transfusion Date of Last Stent Placement:: 2017 Type of Cardiac Device: Permanent Pacemaker Device Placement Date:: 2006,2010,2021 Past Psychological History: No Psychological Hx Reported Smoking Status: Never smoker Past Alcohol Use History: None Reported Past Drug Use History: None Reported
--- NOTE | 2023-10-20 13:48 | P.PN ---
Subjective Progress Note Date: 10/20/23 The patient is an 87-year-old male who follows with a reliner in [place]. He has a history of multiple comorbid conditions and is currently admitted to the hospital with heart failure exacerbation as well as hematuria. Patient has been started on Entresto and overall has been tolerating well. He states his breathing has improved since his hospital admission. He currently denies any chest pain or chest pressure. GENERAL: Well-appearing, well-nourished and in no acute distress. NECK: Supple without JVD or thyromegaly. LUNGS: Breath sounds diminished to auscultation bilaterally. Respiration equal and unlabored. No wheezes, rales or rhonchi. HEART: Regular rate and rhythm. Systolic murmur. No rubs or gallops. S1 and S2 heard. EXTREMITIES: Normal range of motion, no edema. No clubbing or cyanosis. Peripheral pulses intact and strong. TELEMETRY: Paced rhythm overnight IMPRESSION: Acute systolic heart failure Cardiomyopathy, EF 45-50% History of coronary artery disease with previous CABG and stenting Persistent atrial fibrillation History of watchman procedure Hypertension Hyperlipidemia Hypothyroidism Benign prostatic hypertrophy with urinary retention Hematuria PLAN: Discontinue furosemide Consider adding Farxiga Continue maximal medical treatment Discontinue Proscar and Flomax as they contribute to hypotension. Patient has chronic Santos placement. Avoid vasoconstrictors such as midodrine Further recommendations to be based clinical course I am dictating on behalf of Dr Noam Morris's history/physical and assessment/plan. Objective - Vital Signs Vital signs: Vital Signs Temp 98.1 F 10/20/23 12:42 Pulse 65 10/20/23 12:42 Resp 18 10/20/23 12:42 BP 107/65 10/20/23 12:42 Pulse Ox 95 10/20/23 12:42 FiO2 Intake & Output 10/19/23 10/20/23 10/20/23 18:59 06:59 18:59 Intake Total 118 240 118 Output Total 2500 800 Balance -6478 -338 118 Weight 90.718 kg 81.8 kg Intake: Oral 118 240 118 Output: Urine 2500 800 Other: Voiding Method Indwelling Catheter Indwelling Catheter Indwelling Catheter - Labs CBC & Chem 7: 10/18/23 18:41 10/20/23 07:47 Labs: Abnormal Lab Results - Last 24 Hours (Table) 10/20/23 Range/Units 07:47 Potassium 3.4 L (3.5-5.1) mmol/L Carbon Dioxide 31 H (22-30) mmol/L Glucose 117 H (74-99) mg/dL
[2023-10-20] MEDS: ATORVASTATIN 20 MG TAB PO SCH (21:36)
[2023-10-20] MEDS: FAMOTIDINE 20 MG TAB PO SCH (21:36)
[2023-10-20] MEDS: LATANOPROST 0.005% OPHTH DROPS 2.5 ML BTL BOTH EYES SCH (21:36)
[2023-10-21] MEDS: LEVOTHYROXINE 75 MCG TAB PO SCH (05:28)
[2023-10-21] MEDS: NON FORMULARY DRUG (Ubidecarenone [Co Q-10] 100 MG Capsule) PO SCH ×2 (07:38→16:18)
[2023-10-21] MEDS: ASCORBIC ACID 500 MG TAB PO SCH (08:55)
[2023-10-21] MEDS: MAGNESIUM OXIDE 400 MG TAB PO SCH (08:55)
[2023-10-21] MEDS: MULTIVITAMINS, THERA 1 EACH TAB PO SCH (08:55)
[2023-10-21] MEDS: ASPIRIN 81 MG PO SCH (08:55)
[2023-10-21] MEDS: SACUBITRIL/VALSARTAN 24 MG-26 MG TABLET PO SCH ×2 (08:56→20:26)
[2023-10-21] MEDS: SPIRONOLACTONE 25 MG TAB PO SCH (08:56)
[2023-10-21] MEDS: PSYLLIUM HUSK 100% 6 GM PACKET PO SCH ×2 (08:56→18:04)
[2023-10-21 09:41] LABS: African American GFR (CKD) >90 (>60 ml/min/1.73 sqM); Anion Gap 5 mmol/L; Blood Urea Nitrogen 19 mg/dL (9-20); Calcium 8.8 mg/dL (8.4-10.2); Carbon Dioxide 31 mmol/L (22-30); Chloride 101 mmol/L (98-107); Glucose 87 mg/dL (74-99); Magnesium 2.2 mg/dL (1.6-2.3); Non-African American GFR(CKD) 85 (>60 ml/min/1.73 sqM); Potassium 3.8 mmol/L (3.5-5.1); Sodium 137 mmol/L (137-145)
[2023-10-21] MEDS: DAPAGLIFLOZIN PROPANEDIOL 10 MG TABLET PO SCH (10:18)
[2023-10-21] MEDS: METOPROLOL SUCCINATE (ER) 50 MG TAB.ER.24H PO SCH (12:10)
--- NOTE | 2023-10-21 13:28 | P.PN ---
Progress Note - Text Progress Note Date: 10/21/23 Chief Complaint: Hematuria This is a pleasant 87-year-old patient who follows with Dr. Brad Escobar. 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 In August 2023 patient underwent right inguinal hernia repair. Patient had to have a Santos catheter placed at that time. Patient's had intermittent red unit/bleeding. Today he became significantly more. Denies any pelvic discomfort or pain. No fever no chills. Decided to come in. Patient's is admitted to [facility]. Appetite is fair. 10/19/2023: Admitted with CHF exacerbation. Received IV Lasix. Doing better. Also intermittent hematuria. Urology consulted. Edema is come down. 10/20/2023: On Aldactone. Edema coming down. Started on Entresto yesterday. Also on Toprol-XL. Breathing better. Seen by urology. Patient is due to follow up with Dr. Reece/to urologist outpatient. Currently no hematuria 10/21/2023: Giorgi with added by Dr. Noam Lopez.. They want to watch her for at least 24 hours. Breathing stable. Eating fair. Urine clear. Active Medications Acetaminophen (Acetaminophen Tab 325 Mg Tab) 650 mg PO Q6HR PRN PRN Reason: Mild Pain or Fever > 100.5 Alprazolam (Alprazolam 0.25 Mg Tab) 0.25 mg PO Q6HR PRN PRN Reason: Anxiety Ascorbic Acid (Ascorbic Acid 500 Mg Tab) 500 mg PO DAILY [facility] Last Admin: 10/21/23 08:55 Dose: 500 mg Aspirin (Aspirin 81 Mg) 81 mg PO DAILY [facility] Last Admin: 10/21/23 08:55 Dose: 81 mg Atorvastatin Calcium (Atorvastatin 20 Mg Tab) 20 mg PO HS [facility] Last Admin: 10/20/23 21:36 Dose: 20 mg Calcium Carbonate/Glycine (Calcium Carbonate 500 Mg Chewable) 1,000 mg PO Q4HR PRN PRN Reason: Dyspepsia Dapagliflozin (Dapagliflozin Propanediol 10 Mg Tablet) 10 mg PO DAILY [facility] Last Admin: 10/21/23 10:18 Dose: 10 mg Famotidine (Famotidine 20 Mg Tab) 20 mg PO HS [facility] Last Admin: 10/20/23 21:36 Dose: 20 mg Lactulose (Lactulose 20 Gm/30 Ml Cup) 20 gm PO DAILY PRN PRN Reason: Constipation Last Admin: 10/20/23 09:44 Dose: 20 gm Latanoprost (Latanoprost 0.005% Ophth Drops 2.5 Ml Btl) 1 drops BOTH EYES HS [facility] Last Admin: 10/20/23 21:36 Dose: 1 drops Levothyroxine Sodium (Levothyroxine 75 Mcg Tab) 75 mcg PO 0630 [facility] Last Admin: 10/21/23 05:28 Dose: 75 mcg Magnesium Oxide (Magnesium Oxide 400 Mg Tab) 400 mg PO DAILY [facility] Last Admin: 10/21/23 08:55 Dose: 400 mg Melatonin (Melatonin 3 Mg Tablet) 3 mg PO HS PRN PRN Reason: Insomnia Metoprolol Succinate (Metoprolol Succinate (Er) 50 Mg Tab.Er.24h) 50 mg PO DAILY@1200 [facility] Last Admin: 10/21/23 12:10 Dose: 50 mg Multivitamins (Multivitamins, Thera 1 Each Tab) 1 each PO DAILY [facility] Last Admin: 10/21/23 08:55 Dose: 1 each Naloxone HCl (Naloxone 0.4 Mg/Ml 1 Ml Vial) 0.2 mg IV Q2M PRN PRN Reason: Opioid Reversal Non-Formulary Medication (Ubidecarenone [Co Q-10]) 100 mg PO BID-W/MEALS [facility] Last Admin: 10/21/23 07:38 Dose: Not Given Ondansetron HCl (Ondansetron 4 Mg/2 Ml Vial) 4 mg IVP Q8HR PRN PRN Reason: Nausea And Vomiting Psyllium Hydrophilic Mucilloid (Psyllium Husk 100% 6 Gm Packet) 6 gm PO DAILY PRN PRN Reason: Constipation Psyllium Hydrophilic Mucilloid (Psyllium Husk 100% 6 Gm Packet) 6 gm PO BID [facility] Last Admin: 10/21/23 08:56 Dose: Not Given Sacubitril/Valsartan (Sacubitril/Valsartan 24 Mg-26 Mg Tablet) 1 each PO BID [facility] Last Admin: 10/21/23 08:56 Dose: 1 each Spironolactone (Spironolactone 25 Mg Tab) 25 mg PO DAILY [facility] Last Admin: 10/21/23 08:56 Dose: 25 mg Social history: Nonsmoking. No alcohol. . Physical examination: VITAL SIGNS: 97.7, 63, 16, 112/64, 98% room air GENERAL: Sitting up in a chair, awake comfortable EYES: Pupils equal. Conjunctiva normal. HEENT: External appearance of nose and ears normal, oral cavity grossly normal. NECK: JVD not raised; masses not palpable. HEART: First and second heart sounds are normal; decreased edema LUNGS: Respiratory rate normal; clear to auscultation. ABDOMEN: Soft, nontender, liver spleen not palpable, no masses palpable. : Santos catheter: Urine clear PSYCH: Alert and oriented x3; mood and affect normal. MUSCULOSKELETAL:No Clubbing/cyanosis;muscles-grossly intact. OA INVESTIGATIONS, reviewed in the clinical context: 10/21/2023: Potassium 3.8 creatinine 0.73 10/20/2023: Potassium 3.4 creatinine 0.7 2-D echocardiogram: EF 45-50%. Moderate to severe pulmonary hypertension. Moderate mitral regurgitation and severe tricuspid regurgitation. 10/18/2023: White count 9.6 hemoglobin 12.9 platelets 123 sodium 134 potassium 4 creatinine 0.74 EKG tracing personally reviewed by me-ventricular pacemaker 9 Chest x-ray film personally reviewed by me-cardiomegaly. 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 Giorgi added -Intermittent hematuria present for about 4 weeks. Likely from prosthetic irritation from the catheter: Currently urine clear Seen by Dr. brown. Patient due to follow-up with Dr. Reece [facility]. Outpatient. -Moderate to severe secondary pulmonary hypertension -Moderate mitral regurgitation, severe tricuspid regurgitation -Pacemaker -Paroxysmal atrial fibrillation Toprol-XL 50 mg a day -CAD with a prior history of stent: Coronary bypass Toprol-XL. Aspirin -Hyperlipidemia Zocor 40 mg daily at bedtime -Essential hypertension Toprol-XL 50 mg a day -Obstructive sleep apnea uses CPAP -Hypothyroid Synthroid 75 g a day -BPH Proscar 5 mg daily Flomax 0.4 mg a day -Primary osteoarthritis Pain medications as needed discussed with patient. Giorgi added. Follow with cardiology. 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 mac. cataracts removed,right knee replaced,Watchman procedure,CABG-1989,2017-2 vessels w/ mitral valve repair Past Anesthesia/Blood Transfusion Reactions: No Reported Reaction Additional Past Anesthesia/Blood Transfusion Reaction / Comment(s): no known hx blood transfusion Date of Last Stent Placement:: 2017 Type of Cardiac Device: Permanent Pacemaker Device Placement Date:: 2006,2010,2021 Past Psychological History: No Psychological Hx Reported Smoking Status: Never smoker Past Alcohol Use History: None Reported Past Drug Use History: None Reported
--- NOTE | 2023-10-21 13:55 | P.PN ---
Subjective Progress Note Date: 10/21/23 This is Ryan Ndiaye NP, I'm dictating on behalf of Dr. Morris's H&P and A&P. Patient was interviewed and examined. 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 Patient has been started on an trest oh and is tolerating it well. We discontinued the patient's Lasix, Proscar, and Flomax yesterday, and he appears to be doing better. His blood pressure has improved with the discontinuation of multiple medications yesterday. Today the patient reports that he is doing good today. He has no complaints at this time. GENERAL: Well-appearing, well-nourished and in no acute distress. NECK: Supple without JVD or thyromegaly. LUNGS: Breath sounds clear to auscultation bilaterally. Respiration equal and unlabored. No wheezes, rales or rhonchi. HEART: Regular rate and rhythm with systolic murmurs, no rubs or gallops. S1 and S2 heard. EXTREMITIES: Normal range of motion, no edema. No clubbing or cyanosis. Peripheral pulses intact and strong. VITALS: Temp 97.7, pulse 63, respirations 16, blood pressure 112/64, O2 saturation 98% on room air TELEMETRY: Paced rhythm LABS: Sodium 137, potassium 3.8, BUN 19, creatinine 0.73, magnesium 2.2 IMPRESSION: 1. Acute systolic heart failure 2. Cardiomyopathy, EF 45-50% 3. History of coronary artery disease with previous CABG and stenting 4. Persistent atrial fibrillation 5. History of watchman 6. Hypertension 7. Hyperlipidemia 8. Hypothyroidism 9. BPH with urinary retention 10. Hematuria PLAN: Start Farxiga 10mg daily. Continue to maximize medical treatment. Avoid vasoconstrictors such as midodrine. Further recommendations based on patient's clinical course. Objective - Vital Signs Vital signs: Vital Signs Temp 97.7 F 10/21/23 08:00 Pulse 63 10/21/23 08:00 Resp 16 10/21/23 08:00 BP 112/64 10/21/23 08:00 Pulse Ox 98 10/21/23 08:00 FiO2 Intake & Output 10/20/23 10/21/23 10/21/23 18:59 06:59 18:59 Intake Total 1995 0 240 Output Total 600 500 Balance 1396 -500 240 Intake: Oral 1995 0 240 Output: Urine 600 500 Other: Voiding Method Indwelling Catheter Indwelling Catheter Indwelling Catheter - Labs CBC & Chem 7: 10/18/23 18:41 10/21/23 08:44 Labs: Abnormal Lab Results - Last 24 Hours (Table) 10/21/23 Range/Units 08:44 Carbon Dioxide 31 H (22-30) mmol/L
[2023-10-21] MEDS: FAMOTIDINE 20 MG TAB PO SCH (20:26)
[2023-10-21] MEDS: ATORVASTATIN 20 MG TAB PO SCH (20:26)
[2023-10-21] MEDS: LATANOPROST 0.005% OPHTH DROPS 2.5 ML BTL BOTH EYES SCH (20:27)
[2023-10-22] MEDS: NON FORMULARY DRUG (Ubidecarenone [Co Q-10] 100 MG Capsule) PO SCH ×2 (04:45→15:30)
[2023-10-22] MEDS: LEVOTHYROXINE 75 MCG TAB PO SCH (06:29)
[2023-10-22] MEDS: SACUBITRIL/VALSARTAN 24 MG-26 MG TABLET PO SCH ×2 (09:15→21:05)
[2023-10-22] MEDS: DAPAGLIFLOZIN PROPANEDIOL 10 MG TABLET PO SCH (09:15)
[2023-10-22] MEDS: MAGNESIUM OXIDE 400 MG TAB PO SCH (09:15)
[2023-10-22] MEDS: ASCORBIC ACID 500 MG TAB PO SCH (09:15)
[2023-10-22] MEDS: ASPIRIN 81 MG PO SCH (09:15)
[2023-10-22] MEDS: SPIRONOLACTONE 25 MG TAB PO SCH (09:15)
[2023-10-22] MEDS: MULTIVITAMINS, THERA 1 EACH TAB PO SCH (09:15)
[2023-10-22] MEDS: PSYLLIUM HUSK 100% 6 GM PACKET PO SCH ×2 (09:15→20:29)
[2023-10-22] MEDS ORDERED: FUROSEMIDE 10 MG/ML 2 ML VIAL IV STA (09:36)
[2023-10-22] MEDS: METOPROLOL SUCCINATE (ER) 50 MG TAB.ER.24H PO SCH (11:25)
--- NOTE | 2023-10-22 12:54 | P.PN ---
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 Patient has been started on an trest oh and is tolerating it well. We discontinued the patient's Lasix, Proscar, and Flomax yesterday, and he appears to be doing better. His blood pressure has improved with the discontinuation of multiple medications yesterday. Today the patient reports that he is doing good today. He has no complaints at this time. 10/22/2023 Patient examined this morning. Patient is sitting up in the chair. Patient denies chest pain or pressure. He denies shortness of breath. He is currently not receiving diuretics. He does have lower extremity edema at the time of examination. PHYSICAL EXAM: VITAL SIGNS: Reviewed. GENERAL: Well-developed in no acute distress. NECK: Supple. No JVD or thyromegaly LUNGS: Respirations even and unlabored. Lungs essentially clear to auscultation bilaterally. HEART: Regular rate and rhythm. S1 and S2 heard. EXTREMITIES: Normal range of motion. No clubbing or cyanosis. Peripheral pulses intact. 2+ bilateral pitting lower extremity edema ASSESSMENT: 1. Acute on chronic systolic heart failure 2. Cardiomyopathy, EF 45-50% 3. History of coronary artery disease with previous CABG and stenting 4. Persistent atrial fibrillation 5. History of watchman 6. Hypertension 7. Hyperlipidemia 8. Hypothyroidism 9. BPH with urinary retention 10. Hematuria PLAN: Give 1 dose of IV Lasix 20 mg then resume oral Lasix 20 mg twice a day Continue additional cardiac medications Patient is currently stable from a cardiac standpoint Discharge per medicine Nurse practitioner note has been reviewed by physician. Signing provider agrees with the documented findings, assessment, and plan of care. Objective - Vital Signs Vital signs: Vital Signs Temp 97.8 F 10/22/23 09:14 Pulse 79 10/22/23 11:29 Resp 18 10/22/23 11:29 BP 141/71 10/22/23 11:29 Pulse Ox 97 10/22/23 11:29 FiO2 Intake & Output 10/21/23 10/22/23 10/22/23 18:59 06:59 18:59 Intake Total 464 720 225 Output Total 2400 Balance 464 -1680 225 Intake: Oral 464 720 225 Output: Urine 1500 Stool 900 Other: Voiding Method Indwelling Catheter Indwelling Catheter Indwelling Catheter # Bowel Movements 0 - Labs CBC & Chem 7: 10/18/23 18:41 10/21/23 08:44
--- NOTE | 2023-10-22 14:35 | P.PN ---
Progress Note - Text Progress Note Date: 10/22/23 Chief Complaint: Hematuria This is a pleasant 87-year-old patient who follows with Dr. Brad Escobar. 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 In August 2023 patient underwent right inguinal hernia repair. Patient had to have a Santos catheter placed at that time. Patient's had intermittent red unit/bleeding. Today he became significantly more. Denies any pelvic discomfort or pain. No fever no chills. Decided to come in. Patient's is admitted to [facility]. Appetite is fair. 10/19/2023: Admitted with CHF exacerbation. Received IV Lasix. Doing better. Also intermittent hematuria. Urology consulted. Edema is come down. 10/20/2023: On Aldactone. Edema coming down. Started on Entresto yesterday. Also on Toprol-XL. Breathing better. Seen by urology. Patient is due to follow up with Dr. Reece/to urologist outpatient. Currently no hematuria 10/21/2023: Giorgi with added by Dr. Noam Lopez.. They want to watch her for at least 24 hours. Breathing stable. Eating fair. Urine clear. 10/22/2023: Patient given 1 dose of IV Lasix per cardiology. No hematuria. Eating well. Active Medications Acetaminophen (Acetaminophen Tab 325 Mg Tab) 650 mg PO Q6HR PRN PRN Reason: Mild Pain or Fever > 100.5 Alprazolam (Alprazolam 0.25 Mg Tab) 0.25 mg PO Q6HR PRN PRN Reason: Anxiety Ascorbic Acid (Ascorbic Acid 500 Mg Tab) 500 mg PO DAILY [facility] Last Admin: 10/22/23 09:15 Dose: 500 mg Aspirin (Aspirin 81 Mg) 81 mg PO DAILY [facility] Last Admin: 10/22/23 09:15 Dose: 81 mg Atorvastatin Calcium (Atorvastatin 20 Mg Tab) 20 mg PO HS [facility] Last Admin: 10/21/23 20:26 Dose: 20 mg Calcium Carbonate/Glycine (Calcium Carbonate 500 Mg Chewable) 1,000 mg PO Q4HR PRN PRN Reason: Dyspepsia Dapagliflozin (Dapagliflozin Propanediol 10 Mg Tablet) 10 mg PO DAILY [facility] Last Admin: 10/22/23 09:15 Dose: 10 mg Famotidine (Famotidine 20 Mg Tab) 20 mg PO HS [facility] Last Admin: 10/21/23 20:26 Dose: 20 mg Furosemide (Furosemide 20 Mg Tab) 20 mg PO BID@0900,1600 [facility] Lactulose (Lactulose 20 Gm/30 Ml Cup) 20 gm PO DAILY PRN PRN Reason: Constipation Last Admin: 10/20/23 09:44 Dose: 20 gm Latanoprost (Latanoprost 0.005% Ophth Drops 2.5 Ml Btl) 1 drops BOTH EYES HS [facility] Last Admin: 10/21/23 20:27 Dose: 1 drops Levothyroxine Sodium (Levothyroxine 75 Mcg Tab) 75 mcg PO 0630 [facility] Last Admin: 10/22/23 06:29 Dose: 75 mcg Magnesium Oxide (Magnesium Oxide 400 Mg Tab) 400 mg PO DAILY [facility] Last Admin: 10/22/23 09:15 Dose: 400 mg Melatonin (Melatonin 3 Mg Tablet) 3 mg PO HS PRN PRN Reason: Insomnia Metoprolol Succinate (Metoprolol Succinate (Er) 50 Mg Tab.Er.24h) 50 mg PO DAILY@1200 [facility] Last Admin: 10/22/23 11:25 Dose: 50 mg Multivitamins (Multivitamins, Thera 1 Each Tab) 1 each PO DAILY [facility] Last Admin: 10/22/23 09:15 Dose: 1 each Naloxone HCl (Naloxone 0.4 Mg/Ml 1 Ml Vial) 0.2 mg IV Q2M PRN PRN Reason: Opioid Reversal Non-Formulary Medication (Ubidecarenone [Co Q-10]) 100 mg PO BID-W/MEALS [facility] Last Admin: 10/22/23 04:45 Dose: Not Given Ondansetron HCl (Ondansetron 4 Mg/2 Ml Vial) 4 mg IVP Q8HR PRN PRN Reason: Nausea And Vomiting Psyllium Hydrophilic Mucilloid (Psyllium Husk 100% 6 Gm Packet) 6 gm PO DAILY PRN PRN Reason: Constipation Psyllium Hydrophilic Mucilloid (Psyllium Husk 100% 6 Gm Packet) 6 gm PO BID [facility] Last Admin: 10/22/23 09:15 Dose: 6 gm Sacubitril/Valsartan (Sacubitril/Valsartan 24 Mg-26 Mg Tablet) 1 each PO BID [facility] Last Admin: 10/22/23 09:15 Dose: 1 each Spironolactone (Spironolactone 25 Mg Tab) 25 mg PO DAILY [facility] Last Admin: 10/22/23 09:15 Dose: 25 mg Social history: Nonsmoking. No alcohol. . Physical examination: VITAL SIGNS: 97.8, 68, 16, 127/68, 97% room air GENERAL: Sitting up in a chair, awake comfortable EYES: Pupils equal. Conjunctiva normal. HEENT: External appearance of nose and ears normal, oral cavity grossly normal. NECK: JVD not raised; masses not palpable. HEART: First and second heart sounds are normal; decreased edema LUNGS: Respiratory rate normal; clear to auscultation. ABDOMEN: Soft, nontender, liver spleen not palpable, no masses palpable. : Santos catheter: Urine clear PSYCH: Alert and oriented x3; mood and affect normal. MUSCULOSKELETAL:No Clubbing/cyanosis;muscles-grossly intact. OA INVESTIGATIONS, reviewed in the clinical context: 10/21/2023: Potassium 3.8 creatinine 0.73 10/20/2023: Potassium 3.4 creatinine 0.7 2-D echocardiogram: EF 45-50%. Moderate to severe pulmonary hypertension. Moderate mitral regurgitation and severe tricuspid regurgitation. 10/18/2023: White count 9.6 hemoglobin 12.9 platelets 123 sodium 134 potassium 4 creatinine 0.74 EKG tracing personally reviewed by me-ventricular pacemaker 9 Chest x-ray film personally reviewed by me-cardiomegaly. Venous prominence Previous labs: 08/30/2023 hemoglobin 13.2 Assessment and plan: -Acute congestive heart failure exacerbation: Possibly from diastolic dysfunction EF 45-50%-improving IV Lasix-pipe covering molder to by mouth Lasix Cardiology following. Giorgi added -Intermittent hematuria present for about 4 weeks. Likely from prosthetic irritation from the catheter: Currently urine clear Seen by Dr. brown. Patient due to follow-up with Dr. Reece [facility]. Outpatient. -Moderate to severe secondary pulmonary hypertension -Moderate mitral regurgitation, severe tricuspid regurgitation -Pacemaker -Paroxysmal atrial fibrillation Toprol-XL 50 mg a day -CAD with a prior history of stent: Coronary bypass Toprol-XL. Aspirin -Hyperlipidemia Zocor 40 mg daily at bedtime -Essential hypertension Toprol-XL 50 mg a day -Obstructive sleep apnea uses CPAP -Hypothyroid Synthroid 75 g a day -BPH Proscar 5 mg daily Flomax 0.4 mg a day -Primary osteoarthritis Pain medications as needed discussed with patient. Patient received 1 dose of IV Lasix today. Check labs tomorrow. Hopefully discharge tomorrow. Past Medical History Past Medical History: Atrial Fibrillation, Coronary Artery Disease (CAD), Cancer, Hyperlipidemia, Hypertension, Myocardial Infarction ([place]), Prostate Disorder, Sleep Apnea/CPAP/BIPAP, Thyroid Disorder Additional Past Medical History / Comment(s): RIGHT INGUINAL HERNIA,uses cpap,radiation therapy for malignancy on vocal cord-radiation 2002, tiny pieces of food remains after swallowing but states doesn't have any trouble swallowing- followed with Dr Pallavi Gregory there is no problems with the food going down,skin cancers removed Last Myocardial Infarction Date:: summer 1993 History of Any Multi-Drug Resistant Organisms: None Reported Past Surgical History: Coronary Bypass/CABG, Heart Catheterization With Stent, Joint Replacement, Pacemaker Additional Past Surgical History / Comment(s): retina repaired,heart stents x5,vocal cord cyst removed mult,pacemaker left chest. mac. cataracts remove d,right knee replaced,Watchman procedure,CABG-1989,2017-2 vessels w/ mitral valve repair Past Anesthesia/Blood Transfusion Reactions: No Reported Reaction Additional Past Anesthesia/Blood Transfusion Reaction / Comment(s): no known hx blood transfusion Date of Last Stent Placement:: 2017 Type of Cardiac Device: Permanent Pacemaker Device Placement Date:: 2006,2010,2021 Past Psychological History: No Psychological Hx Reported Smoking Status: Never smoker Past Alcohol Use History: None Reported Past Drug Use History: None Reported
[2023-10-22] MEDS: FUROSEMIDE 20 MG TAB PO SCH (16:01)
[2023-10-22] MEDS: LATANOPROST 0.005% OPHTH DROPS 2.5 ML BTL BOTH EYES SCH (20:30)
[2023-10-22] MEDS: FAMOTIDINE 20 MG TAB PO SCH (20:30)
[2023-10-22] MEDS: ATORVASTATIN 20 MG TAB PO SCH (20:30)
[2023-10-23] MEDS: LEVOTHYROXINE 75 MCG TAB PO SCH (05:34)
[2023-10-23] MEDS: NON FORMULARY DRUG (Ubidecarenone [Co Q-10] 100 MG Capsule) PO SCH (06:07)
[2023-10-23] MEDS: ASCORBIC ACID 500 MG TAB PO SCH (08:30)
[2023-10-23] MEDS: FUROSEMIDE 20 MG TAB PO SCH (08:30)
[2023-10-23] MEDS: ASPIRIN 81 MG PO SCH (08:30)
[2023-10-23] MEDS: DAPAGLIFLOZIN PROPANEDIOL 10 MG TABLET PO SCH (08:30)
[2023-10-23] MEDS: SPIRONOLACTONE 25 MG TAB PO SCH (08:30)
[2023-10-23] MEDS: SACUBITRIL/VALSARTAN 24 MG-26 MG TABLET PO SCH (08:30)
[2023-10-23] MEDS: MULTIVITAMINS, THERA 1 EACH TAB PO SCH (08:31)
[2023-10-23] MEDS: MAGNESIUM OXIDE 400 MG TAB PO SCH (08:31)
[2023-10-23] MEDS: PSYLLIUM HUSK 100% 6 GM PACKET PO SCH (08:32)
[2023-10-23] MEDS ORDERED: FUROSEMIDE 10 MG/ML 2 ML VIAL IV STA (09:32)
[2023-10-23 09:59] LABS: African American GFR (CKD) >90 (>60 ml/min/1.73 sqM); Anion Gap 7 mmol/L; Blood Urea Nitrogen 18 mg/dL (9-20); Calcium 9.2 mg/dL (8.4-10.2); Carbon Dioxide 29 mmol/L (22-30); Chloride 102 mmol/L (98-107); Glucose 93 mg/dL (74-99); Non-African American GFR(CKD) >90 (>60 ml/min/1.73 sqM); Potassium 4.2 mmol/L (3.5-5.1); Sodium 138 mmol/L (137-145)
[2023-10-23 11:26] VITALS: BP 114/63; PULSE 86; RESP 17; TEMP 97.7
[2023-10-23] MEDS: METOPROLOL SUCCINATE (ER) 50 MG TAB.ER.24H PO SCH (12:05)
--- NOTE | 2023-10-23 13:19 | P.PN ---
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 Patient has been started on an trest oh and is tolerating it well. We discontinued the patient's Lasix, Proscar, and Flomax yesterday, and he appears to be doing better. His blood pressure has improved with the discontinuation of multiple medications yesterday. Today the patient reports that he is doing good today. He has no complaints at this time. 10/22/2023 Patient examined this morning. Patient is sitting up in the chair. Patient denies chest pain or pressure. He denies shortness of breath. He is currently not receiving diuretics. He does have lower extremity edema at the time of examination. 10/23/2023 Patient examined this morning. He is sitting up in the chair. He denies chest pain or pressure. He denies shortness of breath. He is currently on oral diuretics. His lower extremity edema has improved. Vital signs are stable. PHYSICAL EXAM: VITAL SIGNS: Reviewed. GENERAL: Well-developed in no acute distress. NECK: Supple. No JVD or thyromegaly LUNGS: Respirations even and unlabored. Lungs essentially clear to auscultation bilaterally. HEART: Regular rate and rhythm. S1 and S2 heard. EXTREMITIES: Normal range of motion. No clubbing or cyanosis. Peripheral pulses intact. 2+ bilateral pitting lower extremity edema ASSESSMENT: 1. Acute on chronic systolic heart failure 2. Cardiomyopathy, EF 45-50% 3. History of coronary artery disease with previous CABG and stenting 4. Persistent atrial fibrillation 5. History of watchman 6. Hypertension 7. Hyperlipidemia 8. Hypothyroidism 9. BPH with urinary retention 10. Hematuria PLAN: Give 1 dose of IV Lasix 20 mg then resume oral Lasix 20 mg twice a day Continue additional cardiac medications Patient is currently stable from a cardiac standpoint Discharge per medicine Nurse practitioner note has been reviewed by physician. Signing provider agrees with the documented findings, assessment, and plan of care. Objective - Vital Signs Vital signs: Vital Signs Temp 97.7 F 10/23/23 11:10 Pulse 86 10/23/23 11:10 Resp 17 10/23/23 11:10 BP 114/63 10/23/23 11:10 Pulse Ox 98 10/23/23 11:10 FiO2 Intake & Output 10/22/23 10/23/23 10/23/23 18:59 06:59 18:59 Intake Total 1165 550 0 Output Total 1325 800 Balance -160 -250 0 Weight 79.9 kg Intake: IV 10 Invasive Line 1 10 Oral 1165 540 0 Output: Urine 1325 800 Other: Voiding Method Indwelling Catheter Indwelling Catheter Indwelling Catheter - Labs CBC & Chem 7: 10/18/23 18:41 10/23/23 08:39 Labs: Abnormal Lab Results - Last 24 Hours (Table) 10/23/23 Range/Units 08:39 Creatinine 0.59 L (0.66-1.25) mg/dL
--- NOTE | 2023-10-23 16:04 | P.DS ---
Providers Date of admission: 10/22/23 10:27 Expected date of discharge: 10/23/23 Attending physician: Juvenal Vargas Consults: 10/18/23 18:45 Consult Physician Routine Consulting Provider: Marco A Anne Consult Reason/Comments: CHF, trop elevated Do you want consulting provider notified?: Yes 10/19/23 12:40 Consult Physician Routine Consulting Provider: Arnaldo Brown Consult Reason/Comments: hematuria Do you want consulting provider notified?: Yes Primary care physician: Brad Escobar [facility] Course: Chief Complaint: Hematuria This is a pleasant 87-year-old patient who follows with Dr. Brad Escobar. 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 In August 2023 patient underwent right inguinal hernia repair. Patient had to have a Rodríguez catheter placed at that time. Patient's had intermittent red unit/bleeding. Today he became significantly more. Denies any pelvic discomfort or pain. No fever no chills. Decided to come in. Patient's is admitted to [facility]. Appetite is fair. 10/19/2023: Admitted with CHF exacerbation. Received IV Lasix. Doing better. Also intermittent hematuria. Urology consulted. Edema is come down. 10/20/2023: On Aldactone. Edema coming down. Started on Entresto yesterday. Also on Toprol-XL. Breathing better. Seen by urology. Patient is due to follow up with Dr. Reece/to urologist outpatient. Currently no hematuria 10/21/2023: Giorgi with added by Dr. Noam Lopez.. They want to watch her for at least 24 hours. Breathing stable. Eating fair. Urine clear. 10/22/2023: Patient given 1 dose of IV Lasix per cardiology. No hematuria. Eating well. 10/23/2023: Patient doing well. Clear urine in the Rodríguez catheter. Proscar and Flomax was discontinued by cardiology for blood pressure reasons. Patient is to follow up outpatient which is on urologist and health communications specialist. Questions answered. Social history: Nonsmoking. No alcohol. . Physical examination: VITAL SIGNS: 97.7, 86, 17, 11 4 x 63, 98% room air GENERAL: Sitting up in a chair, awake comfortable EYES: Pupils equal. Conjunctiva normal. HEENT: External appearance of nose and ears normal, oral cavity grossly normal. NECK: JVD not raised; masses not palpable. HEART: First and second heart sounds are normal; decreased edema LUNGS: Respiratory rate normal; clear to auscultation. ABDOMEN: Soft, nontender, liver spleen not palpable, no masses palpable. : Rodríguez catheter: Urine clear PSYCH: Alert and oriented x3; mood and affect normal. MUSCULOSKELETAL:No Clubbing/cyanosis;muscles-grossly intact. OA INVESTIGATIONS, reviewed in the clinical context: 10/23/2023: Potassium 4.2 creatinine 0.59 10/21/2023: Potassium 3.8 creatinine 0.73 10/20/2023: Potassium 3.4 creatinine 0.7 2-D echocardiogram: EF 45-50%. Moderate to severe pulmonary hypertension. Moderate mitral regurgitation and severe tricuspid regurgitation. 10/18/2023: White count 9.6 hemoglobin 12.9 platelets 123 sodium 134 potassium 4 creatinine 0.74 EKG tracing personally reviewed by me-ventricular pacemaker 9 Chest x-ray film personally reviewed by me-cardiomegaly. Venous prominence Previous labs: 08/30/2023 hemoglobin 13.2 Assessment and plan: -Acute congestive heart failure exacerbation: Possibly from diastolic dysfunction EF 45-50%-improving IV Lasix-chemical cell changer to by mouth Lasix Cardiology following. Farxiga and Entresto started by cardiac surgery -Intermittent hematuria present for about 4 weeks. Likely from prosthetic irrit ation from the catheter: Currently urine clear Seen by Dr. brown. Patient due to follow-up with Dr. Reece [facility]. Outpatient. -Moderate to severe secondary pulmonary hypertension -Moderate mitral regurgitation, severe tricuspid regurgitation -Pacemaker -Paroxysmal atrial fibrillation Toprol-XL 50 mg a day -CAD with a prior history of stent: Coronary bypass Toprol-XL. Aspirin -Hyperlipidemia Zocor 40 mg daily at bedtime -Essential hypertension Toprol-XL 50 mg a day -Obstructive sleep apnea uses CPAP -Hypothyroid Synthroid 75 g a day -BPH Proscar 5 mg daily Flomax 0.4 mg a day -Primary osteoarthritis Pain medications as needed discussed with patient. Disposition: Home Past Medical History Past Medical History: Atrial Fibrillation, Coronary Artery Disease (CAD), Cancer, Hyperlipidemia, Hypertension, Myocardial Infarction ([place]), Prostate Disorder, Sleep Apnea/CPAP/BIPAP, Thyroid Disorder Additional Past Medical History / Comment(s): RIGHT INGUINAL HERNIA,uses cpap,radiation therapy for malignancy on vocal cord-radiation 2002, tiny pieces of food remains after swallowing but states doesn't have any trouble swallowing- followed with Dr Pallavi Gregory there is no problems with the food going down,skin cancers removed Last Myocardial Infarction Date:: summer 1993 History of Any Multi-Drug Resistant Organisms: None Reported Past Surgical History: Coronary Bypass/CABG, Heart Catheterization With Stent, Joint Replacement, Pacemaker Additional Past Surgical History / Comment(s): retina repaired,heart stents x5,vocal cord cyst removed mult,pacemaker left chest. mac. cataracts removed,right knee replaced,Watchman procedure,CABG-1989,2016-2 vessels w/ mitral valve repair Past Anesthesia/Blood Transfusion Reactions: No Reported Reaction Additional Past Anesthesia/Blood Transfusion Reaction / Comment(s): no known hx blood transfusion Date of Last Stent Placement:: 2017 Type of Cardiac Device: Permanent Pacemaker Device Placement Date:: 2006,2010,2021 Past Psychological History: No Psychological Hx Reported Smoking Status: Never smoker Past Alcohol Use History: None Reported Past Drug Use History: None Reported Plan - Discharge Summary Discharge Rx Participant: No New Discharge Prescriptions: New Atorvastatin [Lipitor] 20 mg PO HS #30 tab Sacubitril/Valsartan [Entresto 24 mg-26 mg Tablet] 1 each PO BID #60 tab Dapagliflozin Propanediol [Farxiga] 10 mg PO DAILY #30 tab Continue Latanoprost Ophth [Xalatan 0.005%] 1 drop BOTH EYES HS Ferrous Sulfate [Iron (65 MG Elemental)] 325 mg PO BID Aspirin [Adult Low Dose Aspirin EC] 81 mg PO DAILY Ascorbic Acid [Vitamin C] 500 mg PO DAILY Famotidine 20 mg PO HS Spironolactone [Aldactone] 25 mg PO DAILY Acetaminophen Tab [Tylenol] 650 mg PO Q6H PRN PRN Reason: Pain Or Fever > 100.5 Calcium Carbonate [Calcium] 600 mg PO DAILY Psyllium Husk 100% [Metamucil Packet] 6 gm PO BID Ubidecarenone [Co Q-10] 100 mg PO BID-W/MEALS Levothyroxine Sodium [Synthroid] 75 mcg PO DAILY Multivitamins, Thera [Multivitamin (formulary)] 1 tab PO DAILY Furosemide [Lasix] 20 mg PO BID Metoprolol Succinate (ER) [Toprol XL] 50 mg PO DAILY@1200 Magnesium 250 mg PO DAILY Psyllium Husk 100% [Metamucil Packet] 6 gm PO DAILY PRN PRN Reason: Constipation Discontinued Finasteride [Proscar] 5 mg PO DAILY Tamsulosin HCl [Flomax] 0.4 mg PO DAILY Simvastatin [Zocor] 40 mg PO HS Discharge Medication List Ferrous Sulfate [Iron (65 MG Elemental)] 325 mg PO BID 05/23/21 [History] Latanoprost Ophth [Xalatan 0.005%] 1 drop BOTH EYES HS 05/23/21 [History] Levothyroxine Sodium [Synthroid] 75 mcg PO DAILY 05/23/21 [History] Multivitamins, Thera [Multivitamin (formulary)] 1 tab PO DAILY 05/23/21 [History] Ubidecarenone [Co Q-10] 100 mg PO BID-W/MEALS 05/23/21 [History] Ascorbic Acid [Vitamin C] 500 mg PO DAILY 08/07/23 [History] Aspirin [Adult Low Dose Aspirin EC] 81 mg PO DAILY 08/07/23 [History] Famotidine 20 mg PO HS 08/07/23 [History] Furosemide [Lasix] 20 mg PO BID 08/07/23 [History] Metoprolol Succinate (ER) [Toprol XL] 50 mg PO DAILY@1200 08/07/23 [History] Spironolactone [Aldactone] 25 mg PO DAILY 08/07/23 [History] Magnesium 250 mg PO DAILY 08/24/23 [History] Acetaminophen Tab [Tylenol] 650 mg PO Q6H PRN 10/18/23 [History] Calcium Carbonate [Calcium] 600 mg PO DAILY 10/18/23 [History] Psyllium Husk 100% [Metamucil Packet] 6 gm PO BID 10/18/23 [History] Psyllium Husk 100% [Metamucil Packet] 6 gm PO DAILY PRN 10/18/23 [History] Atorvastatin [Lipitor] 20 mg PO HS #30 tab 10/23/23 [Rx] Dapagliflozin Propanediol [Farxiga] 10 mg PO DAILY #30 tab 10/23/23 [Rx] Sacubitril/Valsartan [Entresto 24 mg-26 mg Tablet] 1 each PO BID #60 tab 10/23/23 [Rx] Follow up Appointment(s)/Referral(s): own-health communications specialistdr [Other] - 1 Week (please call to schedule with your health communications specialist tell them you were discharged from [facility] 10/23/23 for chf elevated troponin) own-urologistdr [Other] - 1 Week (please call to schedule with your urologist tell them you were discharged from [facility] 10/23/23 seen for blood in urine you have a chronic rodríguez ) Brad Escobar MD [Primary Care Provider] - 1-2 days (please call to schedule with your health communications specialist tell them you were discharged from [facility] 10/23/23 for chf elevated troponin) Patient Instructions/Handouts: Heart Failure (DC), Rodríguez Catheter Placement and Care (DC) Discharge Disposition: HOME SELF-CARE
== END 2023-10-23 15:00 | disposition home health service (06) ==
LOC: EC 17:52 → 3SCARD 18:46 → OBSVTOIN 10-22 10:27 → INTOOBSV 10-22 10:27 → UNDODISIN 10-23 15:00
PROVIDERS: ADMIT Hospitalist; ATTEND Hospitalist
DX: I11.0 Hypertensive heart disease with heart failure (principal); I50.23 Acute on chronic systolic (congestive) heart failure; N02.9 Recurrent and persistent hematuria with unspecified morphologic changes; I48.0 Paroxysmal atrial fibrillation; I25.10 Atherosclerotic heart disease of native coronary artery without angina pectoris; E78.5 Hyperlipidemia, unspecified; G47.33 Obstructive sleep apnea (adult) (pediatric); E03.9 Hypothyroidism, unspecified; I42.9 Cardiomyopathy, unspecified; N40.1 Benign prostatic hyperplasia with lower urinary tract symptoms; R33.8 Other retention of urine; M19.91 Primary osteoarthritis, unspecified site; I27.20 Pulmonary hypertension, unspecified; I08.1 Rheumatic disorders of both mitral and tricuspid valves; I25.2 Old myocardial infarction; Z85.21 Personal history of malignant neoplasm of larynx; Z85.828 Personal history of other malignant neoplasm of skin; Z92.3 Personal history of irradiation; Z95.0 Presence of cardiac pacemaker; Z95.4 Presence of other heart-valve replacement; Z95.5 Presence of coronary angioplasty implant and graft; Z79.82 Long term (current) use of aspirin; Z79.890 Hormone replacement therapy; Z79.899 Other long term (current) drug therapy; Z88.5 Allergy status to narcotic agent
CPT/HCPCS: 96376 ×3; 99285; 96374; 36415; 93005; 93306; 83880; 80053; 80048 ×3; 83735 ×2; 84484; 85025; 85610; 85730; 81001; 71046; G0378 ×7; S0138 ×2; J1940 ×4